=== PATIENT | male | born 1970 | race Caucasian/White ===

== ENCOUNTER 2017-06-04 02:17 | Observation (INO) ==
[2017-06-04] MEDS ORDERED: ASPIRIN 325 MG TABLET PO STA (02:44)
[2017-06-04] MEDS ORDERED: ALUM/MAG/SIMETH/LIDO VISC 1:1 30 ML BOTTLE PO STA (02:44)
[2017-06-04] MEDS ORDERED: ONDANSETRON 4 MG/2 ML VIAL IV STA (02:44)
[2017-06-04] MEDS ORDERED: MORPHINE 2 MG/1 ML SYRINGE IV STA (02:44)
[2017-06-04] MEDS ORDERED: NITROGLYCERIN 2% OINT 1 INCH/GM PACK TOP STA (02:44)
[2017-06-04 02:54] LABS: Basophils # 0.1 10*3/uL (0.0-0.2); Basophils % 0.6 % (0.0-0.8); Eosinophils # 0.3 10*3/uL (0.0-0.87); Eosinophils % 1.6 % (0.00-10.9); Hemoglobin 19.2 GM/DL (14.0-18.0); Immature Granulocytes % 0.4 %; Immature Granulocytes Absolute 0.07 #; Lymphocytes # 2.8 10*3/uL (1.4-4.0); Lymphocytes % 17.3 % (21.2-54.2); Mean Corpuscular HGB Conc 36.8 GM/DL (32-36); Mean Corpuscular Hemoglobin 31 PG (27-34); Mean Corpuscular Volume 84.9 FL (87-102); Mean Platelet Volume 10.4 FL (9.6-12.0); Monocytes # 1.4 10*3/uL (0.11-0.8); Monocytes % 8.6 % (1.7-12.7); Neutrophils # 11.7 10*3/uL (1.4-7.4); Neutrophils % 71.5 % (38.7-73.9); Platelet Count 338 T/CUMM (130-400); Red Blood Count 6.15 MC/CUMM (3.8-5.5); Red Cell Distribution Width 12.9 % (9.3-17.3); White Blood Count 16.4 T/CUMM (4-12)
[2017-06-04 02:59] LABS: Apearance,Urine CLEAR (Clear); Bilirubin,Urine Negative (Negative); Blood, Urine Negative (Negative); Glucose,Urine (UA) >=500 mg/dL (Negative); Ketones,Urine Negative (Negative); Nitrite,Urine Negative (Negative); PT Patient Result 10.7 SECS; Protein,Urine Negative; Squamous Epithelial Cell,Urine Occasional /HPF (0-10); Urine Color Yellow (Yellow); Urine Urobilinogen < 2.0 EU/DL (0.2-1.0); WBC,Urine 1 /HPF (0-6)
--- NOTE | 2017-06-04 03:00 | Emergency Department Note ---
Vasyl Grissom Emily, am scribing for, and in the presence of, Yovani Villatoro MD 02: 55. Irving Grissom Charles R, MD, personally performed the services described in this documentation, ascribed by Martha Fallon in my presence, and it is both accurate and complete . Arrival - Arrival Chief Complaint: Chest Pain Stated Complaint: chest pains ED Nursing Triage Note: C/O Midsternal chest pain-pressure. Onset upon waking up yesterday morning. pt states that he thought he slept wrong, but as the day has progressed his chest pain has worsened. Denies SOB/nausea with the pain. + pain with inspiration Denies injury. Pt reports nonproductive cough for 1-2 weeks ago Mode of Arrival: Ambulatory Limitations: No Limitations Source: Patient Time Seen by Provider: 06/04/17 02:33 - History of Present Illness HPI Narrative: Pt is a 46 y/o male who came to ED with c/o constant, mid sternal chest pain that onset when waking up yesterday morning. Spouse notes pt thought it was sleeping on the couch the night before, however, chest pain has worsened. Pt reports having pain worsen with deep inspiration, sleeping on side or on back, cough, but denies recent injury, SOB, nausea, or diaphoresis. Pt reports non productive cough for 1-2 weeks ago. Pt describes chest pain as sharp. He smokes a pack and a half a day, per spouse. PMHx of NIDDM, HTN, cardiomyopathy of 5% ejection, hearth cath, and cardiogram done about 6 months ago. Onset (ago): day(s) Consistency: constant Severity: mild, moderate Severity scale (1-10): 4 Quality: sharp Allergies/Adverse Reactions: Allergies Allergy/AdvReac Type Severity Reaction Status Date / Time Cefaclor Allergy HIVES Verified 01/14/15 12:22 Gatifloxacin Allergy HIVES Verified 01/14/15 12:22 Home Medications: Home Medications Medication Instructions Recorded Confirmed Type Aspirin [Ecotrin] 81 mg PO DAILY 01/14/15 06/04/17 History Carvedilol [Coreg] 25 mg PO BID 01/14/15 06/04/17 History Digoxin Tab [Lanoxin Tab] 0.25 mg PO DAILY 01/14/15 06/04/17 History Glimepiride [Amaryl] 2 mg PO DAILY W/BREAKFAST 01/14/15 06/04/17 History Magnesium Chloride [Slow Mag] 128 mg PO BID 01/14/15 06/04/17 History Pantoprazole Tab [Protonix Tab] 40 mg PO DAILY 01/14/15 06/04/17 History Rosuvastatin Calcium [Crestor] 40 mg PO DAILY 01/14/15 06/04/17 History sitaGLIPtin [Januvia] 100 mg PO DAILY 01/14/15 06/04/17 History Fenofibric Acid (Choline) 135 mg PO BEDTIME 07/03/15 06/04/17 History [Fenofibric Acid] Lisinopril 2.5 mg PO DAILY 07/03/15 06/04/17 History Potassium Chloride 20 meq PO BID 07/03/15 06/04/17 History Sertraline [Zoloft] 50 mg PO BEDTIME 07/03/15 06/04/17 History Review of System - Review of System 12 point system: reviewed and no additional remarkable complaints except as stated - Review of System Constitutional: Absent: chills, diaphoresis, fever Respiratory: Present: cough. Absent: respiratory distress (pain with deep breath) Cardiovascular: Present: chest pain (mid sternal pain; pain is worse when laying on side or on back). Absent: orthopnea, edema, syncope Gastrointestinal: Absent: nausea, vomiting Musculoskeletal: Absent: arm pain, neck pain Skin: Absent: rash Neurological: Absent: headache, numbness, paresthesias Medical,Surgical,& Family Hx - Medical History Cardio: History of: CHF (cardiomyopathy), Hypertension, Pacemaker Neurology: No history of: Seizures Endocrine: History of: Diabetes Mellitus (NIDDM) Gastrointestinal: History of: GERD, GI Problems Hematology: No history of: Blood Transfusion Reaction Other: History of: MRSA (buttocks 4 to 5 years ago) No history of: Anesthesia Reactions - Surgical History Cardiac Surgeries: Sugical HX of: Cardiac Catheterization, Internal Defibrillator Thoracic Surgeries: Patient denies;: Organ Transplant, Lobectomy Abdominal Surgeries: Surgical HX of: Hernia Repair (years ago) Reproductive Surgeries: Patient denies;: Genitourinary Surgery - Family History Family History: Reports;: Family Diabetes (father), Family Heart Disease (father ), Family Hypertension Denies;: Family Anesthesia Reaction, Family Cancer, Family Psychiatric Problems, Family Stroke - Social History Smoking Status: Current every day smoker Frequency of Alcohol Use: None Type of Drug Use: None Exam Vital Signs: Vital Signs Temperature 98.5 F 06/04/17 02:28 Pulse Rate 96 H 06/04/17 04:07 Respiratory Rate 18 06/04/17 04:07 Blood Pressure 131/90 06/04/17 04:07 O2 Sat by Pulse Oximetry 97 06/04/17 04:07 - General General appearance: alert, in no apparent distress, other (appears older than stated age) - Head Head exam: Present: atraumatic, normocephalic - Eye Eye exam: Present: PERRL, EOMI - ENT ENT exam: Present: mucous membranes moist. Absent: mucous membranes dry - Neck Neck exam: Present: full ROM - Chest Chest inspection: Present: symmetric chest wall rise (barrel chest) - Respiratory Respiratory exam: Present: rales (at base), rhonchi (bilateral) - Cardiovascular Cardiovascular exam: Present: tachycardia, normal heart sounds - Abdominal Exam Abdominal exam: Present: soft, distention (bloated). Absent: tenderness - Extremities Exam Extremities exam: Present: full ROM, pedal edema (+1 bilateral lower extremities ) - Neurological Exam Neurological exam: Present: alert, oriented X3, CN II-XII intact. Absent: motor sensory deficit - Psychiatric Psychiatric exam: Present: normal affect, normal mood - Skin Skin exam: Present: warm, dry Course - Consultations Consultation #1: Hospitalist will admit patient Time: 04:20 Results - Labs CBC & BMP: 06/04/17 02:32 06/04/17 02:32 Lab Results: I have reviewed the patients labs Labs: Laboratory Tests 06/04/17 06/04/17 06/04/17 02:32 02:32 02:32 WBC RBC Hgb Hct MCV MCHC Plt Count Lymph % (Auto) Neut # (Auto) [place] # (Auto) Sodium 132 L Potassium 3.7 Chloride 97 L Carbon Dioxide 28 BUN 9 Creatinine 0.90 GFR Calculation 117 Glucose 291 H AST 22 ALT 36 Globulin 4.3 H Albumin/Globulin Ratio 0.9 L Amylase 27 Lipase 143.0 Urine Color Yellow Urine Appearance Clear Urine pH 5.0 Ur Specific [place] 1.010 Urine Protein Negative Urine Glucose (UA) >=500 Urine Blood Negative Urine Nitrate Negative Urine Urobilinogen < 2.0 H Urine WBC 1 Ur Squamous Epith Cells Occasional U Amphetamine/Methamph Positive H 06/04/17 02:32 WBC 16.4 H RBC 6.15 H Hgb 19.2 H Hct 51.1 MCV 84.9 L MCHC 36.8 H Plt Count 338 Lymph % (Auto) 17.3 L Neut # (Auto) 11.7 H [place] # (Auto) 1.4 H Sodium Potassium Chloride Carbon Dioxide BUN Creatinine GFR Calculation Glucose AST ALT Globulin Albumin/Globulin Ratio Amylase Lipase Urine Color Urine Appearance Urine pH Ur Specific [place] Urine Protein Urine Glucose (UA) Urine Blood Urine Nitrate Urine Urobilinogen Urine WBC Ur Squamous Epith Cells U Amphetamine/Methamph Laboratory Tests 06/04/17 06/04/17 02:32 02:32 Urine Color Yellow Urine Appearance Clear Urine pH 5.0 Ur Specific [place] 1.010 Urine Glucose (UA) >=500 Urine Blood Negative Urine Nitrate Negative Urine Urobilinogen < 2.0 H Urine WBC 1 Ur Squamous Epith Cells Occasional U Amphetamine/Methamph Positive H Laboratory Tests 06/04/17 02:32 Digoxin 0.40 L Laboratory Tests 06/04/17 06/04/17 02:32 02:32 Troponin I < 0.015 B-Natriuretic Peptide 10 Disposition Clinical Impression: Chest pain, Cardiomyopathy, COPD (chronic obstructive pulmonary disease), Type 2 diabetes mellitus, Diabetes, Hypertension, Tobacco abuse Case discussed with: patient, patient's family Disposition: Still a Patient Condition: Stable Time of Disposition: 04:20
[2017-06-04 03:01] LABS: Hematocrit 51.1 VOL% (42.0-52.0)
[2017-06-04 03:04] LABS: Barbiturates Screen,Urine Negative (Negative); Benzodiazepines Screen,Urine Negative (Negative); Cannabinoid Screen,Urine Negative (Negative); Opiate Screen,Urine Negative (Negative); Phencyclidine Screen,Urine Negative (Negative)
[2017-06-04 03:11] LABS: Albumin 3.9 G/DL (3.4-5.0); Bilirubin,Total 0.7 MG/DL (0.2-1.0); Calcium 9.4 MG/DL (8.5-10.1); Magnesium 1.9 MG/DL (1.8-2.4); Osmolality,Calculated 273.5 MOS/KG (273-304); Potassium 3.7 MMOL/L (3.5-5.1); Total Protein 8.2 G/DL (6.4-8.3)
[2017-06-04] MEDS ORDERED: NITROGLYCERIN 2% OINT 1 INCH/GM PACK TOP ONE (03:13)
[2017-06-04] MEDS ORDERED: ONDANSETRON 4 MG/2 ML VIAL ONE (03:13)
[2017-06-04] MEDS ORDERED: ASPIRIN 325 MG TABLET ONE (03:14)
[2017-06-04] MEDS ORDERED: ALUM/MAG/SIMETH/LIDO VISC 1:1 30 ML BOTTLE PO ONE (03:14)
[2017-06-04] MEDS ORDERED: MORPHINE 2 MG/1 ML SYRINGE ONE (03:14)
[2017-06-04] MEDS ORDERED: KETOROLAC 30 MG/1 ML VIAL IV STA (05:01)
--- NOTE | 2017-06-04 05:08 | Hospitalist History & Physical ---
Assessment and Plan - Time spent with patient Time spent with patient: Greater than 30 minutes Time spent discussing smoking cessation with patient: 3 to 10 minutes (1) Chest pain Status: Acute Assessment and plan: Patient has atypical chest pain which is low risk with a MANUEL score of 2. He has known history of nonischemic cardiomyopathy. He be placed on observation for serial cardiac biomarkers and pain control. He is mildly tachycardic and will order a d-dimer and proceed as indicated. Will consult his vice principal to assist. He should be stable to be discharged within 24 hours if evaluation is negative. Current Visit: Yes (2) Cardiomyopathy Status: Chronic Assessment and plan: Patient has history of nonischemic cardiomyopathy with ejection fraction noted at 5%. He appears to be well compensated at this time. Continue his current medical regimen. Current Visit: Yes (3) Implantable cardioverter-defibrillator (ICD) generator end of life Status: Resolved Assessment and plan: Patient has history of nonischemic cardiomyopathy and is status post AICD placement. Current Visit: No (4) Hypertension Status: Chronic Assessment and plan: Patient is currently hemodynamically stable and blood pressure is well controlled. Continue his current regimen. Current Visit: Yes Qualifiers: Hypertension type: essential hypertension Qualified Code(s): I10 - Essential (primary) hypertension (5) Tobacco abuse Status: Chronic Assessment and plan: He continues to smoke and have his discuss smoking cessation for approximately 3 -1/2 minutes. Current Visit: Yes (6) Type 2 diabetes mellitus Status: Chronic Assessment and plan: Patient has history of diabetes mellitus type 2 controlled on oral hypoglycemic agents. We will continue his home regimen with Accu-Cheks and sliding scale. Hemoglobin A1c has been ordered. Current Visit: Yes History of Present Illness Chief complaint: Chest pain History of present illness: Mr. Cespedes is a 46 year old white male with a history of nonischemic cardiomyopathy, hypertension, diabetes mellitus type 2 who presents with 18 hour history of constant dull anterior chest discomfort which is worsened with positional change and deep breathing. He denies any associated shortness of breath, diaphoresis, nausea, vomiting. He has had a cough which is been nonproductive but denies any fever or chills. He denies any abdominal pain, melena, hematochezia, hematemesis, dysuria, hematuria, urinary frequency urgency or incontinence. He is followed by nurse practitioner in [place]. His vice principal is Dr. Jaleel Sequeira. Home Medications Medication Instructions Recorded Confirmed Type Aspirin [Ecotrin] 81 mg PO DAILY 01/14/15 06/04/17 History Carvedilol [Coreg] 25 mg PO BID 01/14/15 06/04/17 History Digoxin Tab [Lanoxin Tab] 0.25 mg PO DAILY 01/14/15 06/04/17 History Glimepiride [Amaryl] 2 mg PO DAILY W/BREAKFAST 01/14/15 06/04/17 History Magnesium Chloride [Slow Mag] 128 mg PO BID 01/14/15 06/04/17 History Pantoprazole Tab [Protonix Tab] 40 mg PO DAILY 01/14/15 06/04/17 History Rosuvastatin Calcium [Crestor] 40 mg PO DAILY 01/14/15 06/04/17 History sitaGLIPtin [Januvia] 100 mg PO DAILY 01/14/15 06/04/17 History Fenofibric Acid (Choline) 135 mg PO BEDTIME 07/03/15 06/04/17 History [Fenofibric Acid] Lisinopril 2.5 mg PO DAILY 07/03/15 06/04/17 History Potassium Chloride 20 meq PO BID 07/03/15 06/04/17 History Sertraline [Zoloft] 50 mg PO BEDTIME 07/03/15 06/04/17 History Allergies Allergy/AdvReac Type Severity Reaction Status Date / Time Cefaclor Allergy HIVES Verified 01/14/15 12:22 Gatifloxacin Allergy HIVES Verified 01/14/15 12:22 Medical,Surgical,& Family Hx - Medical History Cardio: History of: CHF (cardiomyopathy), Hypertension, Pacemaker Neurology: No history of: Seizures Endocrine: History of: Diabetes Mellitus (NIDDM) Gastrointestinal: History of: GERD, GI Problems Hematology: No history of: Blood Transfusion Reaction Other: History of: MRSA (buttocks 4 to 5 years ago) No history of: Anesthesia Reactions - Surgical History Cardiac Surgeries: Sugical HX of: Cardiac Catheterization, Internal Defibrillator Thoracic Surgeries: Patient denies;: Organ Transplant, Lobectomy Abdominal Surgeries: Surgical HX of: Hernia Repair (years ago) Reproductive Surgeries: Patient denies;: Genitourinary Surgery - Family History Family History: Reports;: Family Diabetes (father), Family Heart Disease (father ), Family Hypertension Denies;: Family Anesthesia Reaction, Family Cancer, Family Psychiatric Problems, Family Stroke - Social History Smoking Status: Current every day smoker Frequency of Alcohol Use: None Type of Drug Use: None Marital Status: 12 point system: reviewed and no additional remarkable complaints except as stated Exam - Constitutional Vitals: Period Temp Pulse Resp BP Sys/Zaragoza Pulse Ox Last 24 Hr 98.5 F-98.5 F 87-110 18-21 123-131/71-90 95-100 General appearance: no acute distress - Head Head exam: Present: normocephalic, atraumatic - Eye Eye exam: Present: EOMI Pupils: Present: HARRY - ENT ENT exam: Present: normal exam - Neck Neck exam: Present: normal inspection - Respiratory Respiratory exam: Present: clear to auscultation bilaterally. Absent: rales, rhonchi, wheezes - Cardiovascular Cardiovascular exam: Present: regular rate and rhythm. Absent: gallop, rubs, systolic murmur, tachycardia - GI/Abdominal GI/Abdominal exam: Present: normal bowel sounds, soft. Absent: mass, tenderness , rebound - Extremities Exam Extremities exam: Absent: calf tenderness, edema - Back Exam Back exam: Present: normal inspection - Neurological Exam Neurological exam: Present: alert, oriented X3, CN II-XII intact, reflexes normal. Absent: motor sensory deficit - Psychiatric Psychiatric exam: Present: normal affect, normal mood. Absent: agitated, anxious - Skin Skin exam: Present: warm, dry. Absent: erythema, petechiae, rash Results - Labs CBC & BMP: 06/04/17 02:32 06/04/17 02:32 Lab Results: I have reviewed the past 24 hour labs - EKG EKG shows: sinus rhythm - Diagnostic Findings Procedure: Chest x-ray: image reviewed by me
[2017-06-04] MEDS ORDERED: KETOROLAC 30 MG/1 ML VIAL ONE (05:29)
--- NOTE | 2017-06-04 06:24 | EKG Report ---
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
[2017-06-04] MEDS ORDERED: GLUCAGON 1 MG VIAL IM PRN (06:31)
[2017-06-04] MEDS ORDERED: guaiFENesin 200 MG/10 ML UDCUP PO PRN (06:31)
[2017-06-04] MEDS ORDERED: MORPHINE 2 MG/1 ML SYRINGE IV PRN (06:31)
[2017-06-04] MEDS ORDERED: SODIUM CHLORIDE 0.45% 1,000 ML IV SCH (06:31)
[2017-06-04] MEDS ORDERED: ONDANSETRON 4 MG/2 ML VIAL IV PRN (06:31)
[2017-06-04] MEDS ORDERED: KETOROLAC 15 MG/1 ML VIAL IV PRN (06:31)
[2017-06-04] MEDS ORDERED: DEXTROSE 50% 25 GM/50 ML SYRINGE IV PRN (06:31)
[2017-06-04] MEDS ORDERED: AZITHROMYCIN 250 MG TABLET PO SCH (07:30)
--- NOTE | 2017-06-04 07:41 | XRay Report ---
Exam: XR chest 1V portable Date: 06/04/2017 2:44 AM Indication: Chest pain Comparison: 11/22/2016 Technical: AP Findings: Left-sided cardiac implantable defibrillator pacing device with atrial ventricular leads present with 2 ventricular leads present. The lungs are otherwise demonstrated without infiltrates or effusions. The mediastinum and bony structures are intact. No pneumothorax. Impression: 1. Stable appearance the cardiac implantable defibrillator pacing device from a left-sided approach without acute cardiopulmonary pathology PROCEDURE INTERPRETED AT [facility] DEPARTMENT OF RADIOLOGY Final Report Signed by: Dr. Ambrocio Vidales
--- NOTE | 2017-06-04 07:42 | XRay Report ---
Exam: XR abdomen 2V Date: 06/04/2017 2:44 AM Comparison: January 14, 2015 Indication: Epigastric pain Findings: Lung bases are unremarkable. There is a cardiac pacing device in place with atrial ventricular leads noted The liver and spleen are unremarkable Renal contours are unremarkable The bony structures are intact No obvious pneumoperitoneum Nonspecific GI pattern. Impression: 1. Nonspecific GI pattern. PROCEDURE INTERPRETED AT [facility] DEPARTMENT OF RADIOLOGY Final Report Signed by: Dr. Ambrocio Vidales
--- NOTE | 2017-06-04 07:44 | EKG Report ---
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
[2017-06-04] MEDS ORDERED: GLIMEPIRIDE 2 MG TABLET PO SCH (08:00)
[2017-06-04 08:03] LABS: Risk Ratio 3.85; VLDL CHOLESTEROL 54.4 MG/DL
[2017-06-04] MEDS: INSULIN LISPRO 100 UNIT/ML SUBCUT SCH ×3 (08:50→17:10)
[2017-06-04] MEDS: NITROGLYCERIN 2% OINT 1 INCH/GM PACK TOP SCH ×2 (08:50→11:25)
[2017-06-04] MEDS ORDERED: ASPIRIN EC 81 MG TABLET PO SCH (09:00)
[2017-06-04] MEDS ORDERED: CARVEDILOL 25 MG TABLET PO SCH (09:00)
[2017-06-04] MEDS ORDERED: sitaGLIPtin 100 MG TABLET PO SCH (09:00)
[2017-06-04] MEDS ORDERED: DIGOXIN 0.25 MG TABLET PO SCH (09:00)
[2017-06-04] MEDS ORDERED: PANTOPRAZOLE 40 MG TABLET PO SCH (09:00)
[2017-06-04] MEDS ORDERED: LISINOPRIL 2.5 MG TABLET PO SCH (09:00)
[2017-06-04] MEDS ORDERED: ROSUVASTATIN 20 MG TABLET PO SCH (09:00)
[2017-06-04] MEDS ORDERED: ENOXAPARIN 40 MG/0.4 ML SYRINGE SUBCUT SCH (09:00)
[2017-06-04] MEDS ORDERED: POTASSIUM CHLORIDE 20 MEQ TABLET PO SCH (09:00)
[2017-06-04] MEDS ORDERED: MAGNESIUM CHLORIDE 64 MG TABLET PO SCH (09:00)
--- NOTE | 2017-06-04 10:59 | Discharge Summary ---
<Ana Panda - Last Filed: 06/04/17 10:51> Hospital Course - Hospital Course Hospital Course: This is a chronically ill 46-year-old male that presented to the ED at [facility] on the morning of Sunday, June 04, 2017 for the evaluation of chest pain. The patient reported a medical history significant for nonischemic cardiomyopathy, hypertension, diabetes mellitus type 2, polysubstance abuse, chronic obstructive pulmonary disease, chronic systolic congestive heart failure, dyslipidemia, and nicotine addiction. Patient reported a surgical history significant for implantable cardioverter- defibrillator Generator placement, hernia repair, and cardiac catheterization. The patient reported the onset of symptoms 18 hours prior to presentation. He reported a gradual onset of dull anterior chest discomfort that worsened with positional changes and deep breathing; however denies shortness of breath, diaphoresis, nausea, vomiting, and epigastric discomfort. He reported that he had started to experiencing a cough in recent days however, the cough was noted to be nonproductive. He denied chills, fever, abdominal pain, melena, hematochezia, hematemesis, dysuria, hematuria, urinary frequency, or urinary incontinence. His symptoms became severe prompting him to present to the ED for further evaluation. The patient was assessed at the time of ED presentation. The patient was noted to be mildly hypertensive with a blood pressure recorded at 131/90. Labs were obtained which were significant for white blood cell count 16.4, hemoglobin 16.4 , hematocrit 51.5, platelet count 238, sodium 132, chloride 97, glucose 291, hemoglobin A1c 7.2, troponin less than 0.015, and triglycerides at 272. Urinalysis was significant for urine urobilinogen greater than 2.0, urine white blood cell count 1, and urine squamous epithelial cells occasional. Urine toxicology significant for digoxin level at 0.40 and positive findings for amphetamine and methamphetamine. CT abdomen and pelvis was unremarkable for the presence of any specific gastrointestinal pattern. Chest x-ray was significant for stable appearance of the cardiac implantable defibrillator pacer device from a left-sided approach without cardiopulmonary pathology. The patient was subsequently admitted to the hospitalist service for continuation of care. Due to the severity of the patient's cardiovascular disease, a cardiology consultation was requested. Specialty Discharge - Follow Up or Referrals Follow up with: Sergey Sequeira MD [Physician] - (Please schedule Cardiolite stress test at [facility] in the next 1-2 weeks (reason: Chest pain). Also, please schedule echocardiogram at [facility] in the next 2-3 weeks (reason: Cardiomyopathy). Please give patient a follow-up appoint with Dr. Sequeira in 4-6 weeks. At that visit the following will be obtained: BMP, magnesium, CBC, EKG.) Discharge Plan - Discharge Medications New guaiFENesin LIQUID [Robitussin] 10 ml PO Q4H PRN #1 PRN Reason: Cough Azithromycin Tab [Zithromax Tab] 500 mg PO DAILY #7 tablet Continue Pantoprazole Tab [Protonix Tab] 40 mg PO DAILY Magnesium Chloride [Slow Mag] 128 mg PO BID sitaGLIPtin [Januvia] 100 mg PO DAILY Rosuvastatin Calcium [Crestor] 40 mg PO DAILY Digoxin Tab [Lanoxin Tab] 0.25 mg PO DAILY Glimepiride [Amaryl] 2 mg PO DAILY W/BREAKFAST Carvedilol [Coreg] 25 mg PO BID Aspirin [Ecotrin] 81 mg PO DAILY Fenofibric Acid (Choline) [Fenofibric Acid] 135 mg PO BEDTIME Potassium Chloride 20 meq PO BID Sertraline [Zoloft] 50 mg PO BEDTIME Lisinopril 2.5 mg PO DAILY - Follow Up or Referral Follow Up: Sergey Sequeira MD [Physician] - (Please schedule Cardiolite stress test at [facility] in the next 1-2 weeks (reason: Chest pain). Also, please schedule echocardiogram at [facility] in the next 2-3 weeks (reason: Cardiomyopathy). Please give patient a follow-up appoint with Dr. Sequeira in 4-6 weeks. At that visit the following will be obtained: BMP, magnesium, CBC, EKG.) - Forms/Instructions Exam - Constitutional Vitals: Period Temp Pulse Resp BP Sys/[place] Pulse Ox Last 24 Hr 97.0 F-98.5 F 87-110 16-21 94-135/51-90 92-100 Discharge Results Labs on day of discharge: Labs from last 24 hours 06/04/17 06/04/17 06/04/17 15:37 11:56 11:22 WBC RBC Hgb Hct MCV MCH MCHC RDW Plt Count MPV Neut % (Auto) Lymph % (Auto) [place] % (Auto) Eos % (Auto) Baso % (Auto) Neut # (Auto) Lymph # (Auto) [place] # (Auto) Eos # (Auto) Baso # (Auto) Immature Gran % Nucleated RBC % Immature Gran # Nucleated RBCs # Immature Plt Fraction INR PT Patient/Control Mix D-Dimer, Quantitative Sodium Potassium Chloride Carbon Dioxide Anion Gap BUN Creatinine GFR Calculation BUN/Creatinine Ratio Glucose POC Glucose 254 H 233 H Hemoglobin A1c Calculated Osmolality Calcium Magnesium Total Bilirubin AST ALT Alkaline Phosphatase Total Creatine Kinase 43 CK-MB (CK-2) 1.0 Troponin I < 0.015 B-Natriuretic Peptide Total Protein Albumin Globulin Albumin/Globulin Ratio Triglycerides Cholesterol LDL Cholesterol VLDL Cholesterol HDL Cholesterol Heart Disease Risk Ratio Amylase Lipase Urine Color Urine Appearance Urine pH Ur Specific [place] Urine Protein Urine Glucose (UA) Urine Ketones Urine Blood Urine Nitrate Urine Bilirubin Urine Urobilinogen Urine Leukocytes Urine WBC Ur Squamous Epith Cells Ur Culture Indicated? Digoxin Urine Opiates Screen Ur Barbiturates Screen Ur Phencyclidine Scrn U Amphetamine/Methamph U Benzodiazepines Scrn U Cocaine Metab Screen U Cannabinoids Screen 06/04/17 06/04/17 06/04/17 07:15 07:15 07:15 WBC RBC Hgb Hct MCV MCH MCHC RDW Plt Count MPV Neut % (Auto) Lymph % (Auto) [place] % (Auto) Eos % (Auto) Baso % (Auto) Neut # (Auto) Lymph # (Auto) [place] # (Auto) Eos # (Auto) Baso # (Auto) Immature Gran % Nucleated RBC % Immature Gran # Nucleated RBCs # Immature Plt Fraction INR PT Patient/Control Mix D-Dimer, Quantitative Sodium Potassium Chloride Carbon Dioxide Anion Gap BUN Creatinine GFR Calculation BUN/Creatinine Ratio Glucose POC Glucose Hemoglobin A1c 7.2 H Calculated Osmolality Calcium Magnesium Total Bilirubin AST ALT Alkaline Phosphatase Total Creatine Kinase CK-MB (CK-2) Troponin I < 0.015 B-Natriuretic Peptide Total Protein Albumin Globulin Albumin/Globulin Ratio Triglycerides 272 H Cholesterol 154 LDL Cholesterol 83.0 VLDL Cholesterol 54.4 HDL Cholesterol 40 Heart Disease Risk Ratio 3.85 Amylase Lipase Urine Color Urine Appearance Urine pH Ur Specific [place] Urine Protein Urine Glucose (UA) Urine Ketones Urine Blood Urine Nitrate Urine Bilirubin Urine Urobilinogen Urine Leukocytes Urine WBC Ur Squamous Epith Cells Ur Culture Indicated? Digoxin Urine Opiates Screen Ur Barbiturates Screen Ur Phencyclidine Scrn U Amphetamine/Methamph U Benzodiazepines Scrn U Cocaine Metab Screen U Cannabinoids Screen 06/04/17 06/04/17 06/04/17 06:43 02:32 02:32 WBC RBC Hgb Hct MCV MCH MCHC RDW Plt Count MPV Neut % (Auto) Lymph % (Auto) [place] % (Auto) Eos % (Auto) Baso % (Auto) Neut # (Auto) Lymph # (Auto) [place] # (Auto) Eos # (Auto) Baso # (Auto) Immature Gran % Nucleated RBC % Immature Gran # Nucleated RBCs # Immature Plt Fraction INR PT Patient/Control Mix D-Dimer, Quantitative 0.6 Sodium Potassium Chloride Carbon Dioxide Anion Gap BUN Creatinine GFR Calculation BUN/Creatinine Ratio Glucose POC Glucose 211 H Hemoglobin A1c Calculated Osmolality Calcium Magnesium Total Bilirubin AST ALT Alkaline Phosphatase Total Creatine Kinase CK-MB (CK-2) Troponin I B-Natriuretic Peptide Total Protein Albumin Globulin Albumin/Globulin Ratio Triglycerides Cholesterol LDL Cholesterol VLDL Cholesterol HDL Cholesterol Heart Disease Risk Ratio Amylase Lipase Urine Color Urine Appearance Urine pH Ur Specific [place] Urine Protein Urine Glucose (UA) Urine Ketones Urine Blood Urine Nitrate Urine Bilirubin Urine Urobilinogen Urine Leukocytes Urine WBC Ur Squamous Epith Cells Ur Culture Indicated? Digoxin 0.40 L Urine Opiates Screen Ur Barbiturates Screen Ur Phencyclidine Scrn U Amphetamine/Methamph U Benzodiazepines Scrn U Cocaine Metab Screen U Cannabinoids Screen 06/04/17 06/04/17 06/04/17 02:32 02:32 02:32 WBC 16.4 H RBC 6.15 H Hgb 19.2 H Hct 51.1 MCV 84.9 L MCH 31 MCHC 36.8 H RDW 12.9 Plt Count 338 MPV 10.4 Neut % (Auto) 71.5 Lymph % (Auto) 17.3 L [place] % (Auto) 8.6 Eos % (Auto) 1.6 Baso % (Auto) 0.6 Neut # (Auto) 11.7 H Lymph # (Auto) 2.8 [place] # (Auto) 1.4 H Eos # (Auto) 0.3 Baso # (Auto) 0.1 Immature Gran % 0.4 Nucleated RBC % 0.0 Immature Gran # 0.07 Nucleated RBCs # 0.00 Immature Plt Fraction 0.0 INR PT Patient/Control Mix D-Dimer, Quantitative Sodium Potassium Chloride Carbon Dioxide Anion Gap BUN Creatinine GFR Calculation BUN/Creatinine Ratio Glucose POC Glucose Hemoglobin A1c Calculated Osmolality Calcium Magnesium Total Bilirubin AST ALT Alkaline Phosphatase Total Creatine Kinase CK-MB (CK-2) Troponin I < 0.015 B-Natriuretic Peptide Total Protein Albumin Globulin Albumin/Globulin Ratio Triglycerides Cholesterol LDL Cholesterol VLDL Cholesterol HDL Cholesterol Heart Disease Risk Ratio Amylase Lipase Urine Color Urine Appearance Urine pH Ur Specific [place] Urine Protein Urine Glucose (UA) Urine Ketones Urine Blood Urine Nitrate Urine Bilirubin Urine Urobilinogen Urine Leukocytes Urine WBC Ur Squamous Epith Cells Ur Culture Indicated? Digoxin Urine Opiates Screen Negative Ur Barbiturates Screen Negative Ur Phencyclidine Scrn Negative U Amphetamine/Methamph Positive H U Benzodiazepines Scrn Negative U Cocaine Metab Screen Negative U Cannabinoids Screen Negative 06/04/17 06/04/17 06/04/17 02:32 02:32 02:32 WBC RBC Hgb Hct MCV MCH MCHC RDW Plt Count MPV Neut % (Auto) Lymph % (Auto) [place] % (Auto) Eos % (Auto) Baso % (Auto) Neut # (Auto) Lymph # (Auto) [place] # (Auto) Eos # (Auto) Baso # (Auto) Immature Gran % Nucleated RBC % Immature Gran # Nucleated RBCs # Immature Plt Fraction INR PT Patient/Control Mix D-Dimer, Quantitative Sodium 132 L Potassium 3.7 Chloride 97 L Carbon Dioxide 28 Anion Gap 10.7 BUN 9 Creatinine 0.90 GFR Calculation 117 BUN/Creatinine Ratio 10.00 Glucose 291 H POC Glucose Hemoglobin A1c Calculated Osmolality 273.5 Calcium 9.4 Magnesium 1.9 Total Bilirubin 0.70 AST 22 ALT 36 Alkaline Phosphatase 117 Total Creatine Kinase CK-MB (CK-2) Troponin I B-Natriuretic Peptide 10 Total Protein 8.2 Albumin 3.9 Globulin 4.3 H Albumin/Globulin Ratio 0.9 L Triglycerides Cholesterol LDL Cholesterol VLDL Cholesterol HDL Cholesterol Heart Disease Risk Ratio Amylase 27 Lipase 143.0 Urine Color Yellow Urine Appearance Clear Urine pH 5.0 Ur Specific [place] 1.010 Urine Protein Negative Urine Glucose (UA) >=500 Urine Ketones Negative Urine Blood Negative Urine Nitrate Negative Urine Bilirubin Negative Urine Urobilinogen < 2.0 H Urine Leukocytes Negative Urine WBC 1 Ur Squamous Epith Cells Occasional Ur Culture Indicated? Not indicated Digoxin Urine Opiates Screen Ur Barbiturates Screen Ur Phencyclidine Scrn U Amphetamine/Methamph U Benzodiazepines Scrn U Cocaine Metab Screen U Cannabinoids Screen 06/04/17 02:32 WBC RBC Hgb Hct MCV MCH MCHC RDW Plt Count MPV Neut % (Auto) Lymph % (Auto) [place] % (Auto) Eos % (Auto) Baso % (Auto) Neut # (Auto) Lymph # (Auto) [place] # (Auto) Eos # (Auto) Baso # (Auto) Immature Gran % Nucleated RBC % Immature Gran # Nucleated RBCs # Immature Plt Fraction INR 1.0 PT Patient/Control Mix 10.7 D-Dimer, Quantitative Sodium Potassium Chloride Carbon Dioxide Anion Gap BUN Creatinine GFR Calculation BUN/Creatinine Ratio Glucose POC Glucose Hemoglobin A1c Calculated Osmolality Calcium Magnesium Total Bilirubin AST ALT Alkaline Phosphatase Total Creatine Kinase CK-MB (CK-2) Troponin I B-Natriuretic Peptide Total Protein Albumin Globulin Albumin/Globulin Ratio Triglycerides Cholesterol LDL Cholesterol VLDL Cholesterol HDL Cholesterol Heart Disease Risk Ratio Amylase Lipase Urine Color Urine Appearance Urine pH Ur Specific [place] Urine Protein Urine Glucose (UA) Urine Ketones Urine Blood Urine Nitrate Urine Bilirubin Urine Urobilinogen Urine Leukocytes Urine WBC Ur Squamous Epith Cells Ur Culture Indicated? Digoxin Urine Opiates Screen Ur Barbiturates Screen Ur Phencyclidine Scrn U Amphetamine/Methamph U Benzodiazepines Scrn U Cocaine Metab Screen U Cannabinoids Screen DS: Provider Date of admission: 06/04/17 05:00 Primary care physician: FREDA Jones Attending physician on admission: Ambrocio Gregory MD Consults: 06/04/17 06:31 Consult to Physician [CONS] Routine Comment: cp Consulting Provider: Cardiology - [facility] Discharging clinician: Ana Panda CNP <Kalee Martins - Last Filed: 06/04/17 16:44> Diagnosis - Discharge Diagnosis (1) Chest pain Status: Resolved Discharge Plan - Discharge Data Condition at Discharge: Activity: resume usual activities as tolerated Hygiene: no restrictions Weight Bearing at Discharge: full weight bearing Driving: no restrictions Exam - Constitutional General appearance: no acute distress - Head Head exam: Present: normal inspection - Eye Eye exam: Present: EOMI - ENT ENT exam: Present: normal exam - Neck Neck exam: Present: normal inspection - Respiratory Respiratory exam: Present: clear to auscultation bilaterally - Cardiovascular Cardiovascular exam: Present: regular rate and rhythm - Neurological Exam Neurological exam: Present: alert, oriented X3
--- NOTE | 2017-06-04 12:25 | Cardiology Progress Note ---
Tay Grissom Lesley, ASHLEY, am scribing for, and in the presence of, Clair Kothari NP 12:21. <Clair Kothari - Last Filed: 06/04/17 12:18> Assessment and Plan - Time spent with patient Time spent with patient: Greater than 30 minutes (Record review, assessment, documentation) Time spent discussing smoking cessation with patient: 3 to 10 minutes (1) Cardiomyopathy Status: Chronic Assessment and plan: SEE PLAN LISTED BELOW Current Visit: Yes (2) Hypertension Status: Chronic Assessment and plan: SEE PLAN LISTED BELOW Current Visit: Yes Qualifiers: Hypertension type: essential hypertension Qualified Code(s): I10 - Essential (primary) hypertension (3) Chest pain Status: Acute Assessment and plan: SEE PLAN LISTED BELOW Current Visit: Yes (4) Tobacco abuse Status: Chronic Assessment and plan: SEE PLAN LISTED BELOW Current Visit: Yes (5) Noncompliance Status: Acute Assessment and plan: SEE PLAN OF CARE LISTED BELOW Current Visit: Yes Cardiology - PN: Subj Interval history: 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 Cespedes is a 46-year-old WM, admitted to the ER with complaints of chest pain that he described as a sharp soreness to the center of his chest. He reports the pain awakened him from a nap and reported no alleviating factors. He did report that laying flat worsened the pain, and that the pain did not go away and so he came to the emergency room for evaluation. He denies dyspnea, orthopnea, nausea, vomiting, heart palpitations, or lower extremity edema. Cardiac risk factors include nonischemic cardiomyopathy, presence of AICD, COPD , diabetes type 2, hyperlipidemia, hyponatremia, hypertension, smoker (1-1.5 ppd for 32 years). Past surgical history includes biventricular ICD implantation and lead replacement, hernia repair. He admits to current tobacco use, denies alcohol use, denies drug use. Patient's is at bedside in states he has missed multiple appointments for sleep study, and reports that he snore at night. Suspect sleep apnea. Transthoracic echocardiogram done 12/2016 revealed global left ventricular systolic function moderately decreased, left ventricular ejection fraction 35%, mild concentric left ventricular hypertrophy present, mild mitral regurgitation , mild aortic regurgitation, mild tricuspid regurgitation, PAP 32 mmHg. The patient seen sitting up and eating breakfast. He did denies current chest pain or dyspnea. He reports that he initially thought his chest pain was related to coughing, as he is had a cold for about 2 weeks. He reports the chest pain would not go away, and only got worse and so he presented to the emergency room for evaluation. He reports that he was given a GI cocktail in the emergency room, and this seemed to relieve his pain. The pain has not returned. Vital signs have remained stable, EKG shows sinus rhythm with ST deviation and T-wave abnormality. Chest x-ray reveals stable cardiac implantable defibrillator pacing device without acute cardiopulmonary pathology. Abdominal x-ray shows reveals nonspecific GI pattern. Labs reviewed , WBCs 16.4, hemoglobin 19.2, hematocrit 51, INR 1.0, sodium 132, potassium 3.7 , creatinine 0.9, BUN 9, glucose 291, hemoglobin A1c 7.2, triglycerides 272, LDL 83. Urinalysis negative, digoxin level 0.4, which is low. Urine drug screen positive for amphetamines. Troponins have remained negative. D-dimer 0.6. Patient has been ambulating without difficulty. His chest pain is reproducible to palpation and not thought to be cardiac in nature. Patient would like to be discharged home at this time. From cardiology standpoint, he is stable for discharge. Patient has a history of noncompliance. He will be given a follow-up appointment with Dr. Sequeira for further management. Will schedule him for outpatient stress test and echocardiogram. IMPRESSION/PLAN: 1. CHEST PAIN -cardiac biomarkers are negative, EKG is stable. This is not acute [place]. Patient's chest pain is reproducible to palpation. He will be given an outpatient stress test at [facility] and we will arrange for this prior to discharge. 2. NONISCHEMIC CARDIOMYOPATHY - EF 35%, repeat echo outpatient. Will arrange for outpatient echocardiogram 3. HYPERTENSION - continue beta joanna, digoxin, ACEI 4. TOBACCO ABUSE - the merits of smoking cesssation have been encouraged and discussed with the patient. 5. AMPHETAMINE USE - patient denies use, UDS positive today. The merits of discontinuation of use of amphetamines was thoroughly discussed today for greater than 5 minutes. 6. NONCOMPLIANCE - reiterated the importance of continued follow-up and compliance with medications. 7. DIABETES - patient has been noncompliant with his diabetic medications. He is encouraged to follow-up with his primary care provider for continued management. Exam (Progress Note) - Constitutional Vitals: Period Temp Pulse Resp BP Sys/Zaragoza Pulse Ox Last 24 Hr 97.9 F-98.5 F 87-110 16-21 121-135/71-90 95-100 Exam: General: Appears well with no apparent distress. Pleasant and cooperative. Appears comfortable. HEENT: PERRL, normocephalic, atraumatic. Mucous membranes moist. No jaundice noted. Conjunctiva moist and clear, sclerae anicteric. Neck: No JVD/HJR, no thyromegaly or lymphadenopathy noted. No carotid bruit appreciated. Cardiac: Regular rate and rhythm. No murmur rub or gallop. No chest reveals ICD well-healed insertion site Lungs: Clear to auscultation without accessory muscle use to assist the respiratory pattern. No oxygen in use. Abdomen: Soft, bowel sounds normoactive. Nontender and nondistended. No abdominal bruit or thrill noted. No masses noted. Musculoskeletal: No fluid collection. Full range of motion is noted. Extremities: No clubbing, cyanosis noted. No edema noted. Upper extremity pulses 2+. Lower extremity pulses 2+. Capillary refill less than 3 seconds. Skin: Warm and dry. No unusual lesions or rashes. No skin breakdown appreciated. Neuro: Awake, alert and oriented 3. Moves all extremities well without hemiparesis or paralysis. No essential tremor is appreciated. Result/EKG - Labs CBC & BMP: 06/04/17 02:32 06/04/17 02:32 Lab Results: I have reviewed the past 24 hour labs Labs: Laboratory Results - last 24 hr 06/04/17 06/04/17 06/04/17 02:32 02:32 02:32 WBC RBC Hgb Hct MCV MCH MCHC RDW Plt Count MPV Neut % (Auto) Lymph % (Auto) [place] % (Auto) Eos % (Auto) Baso % (Auto) Neut # (Auto) Lymph # (Auto) [place] # (Auto) Eos # (Auto) Baso # (Auto) Immature Gran % Nucleated RBC % Immature Gran # Nucleated RBCs # Immature Plt Fraction INR 1.0 PT Patient/Control Mix 10.7 D-Dimer, Quantitative Sodium 132 L Potassium 3.7 Chloride 97 L Carbon Dioxide 28 Anion Gap 10.7 BUN 9 Creatinine 0.90 GFR Calculation 117 BUN/Creatinine Ratio 10.00 Glucose 291 H POC Glucose Hemoglobin A1c Calculated Osmolality 273.5 Calcium 9.4 Magnesium 1.9 Total Bilirubin 0.70 AST 22 ALT 36 Alkaline Phosphatase 117 Troponin I B-Natriuretic Peptide Total Protein 8.2 Albumin 3.9 Globulin 4.3 H Albumin/Globulin Ratio 0.9 L Triglycerides Cholesterol LDL Cholesterol VLDL Cholesterol HDL Cholesterol Heart Disease Risk Ratio Amylase 27 Lipase 143.0 Urine Color Yellow Urine Appearance Clear Urine pH 5.0 Ur Specific [place] 1.010 Urine Protein Negative Urine Glucose (UA) >=500 Urine Ketones Negative Urine Blood Negative Urine Nitrate Negative Urine Bilirubin Negative Urine Urobilinogen < 2.0 H Urine Leukocytes Negative Urine WBC 1 Ur Squamous Epith Cells Occasional Ur Culture Indicated? Not indicated Digoxin Urine Opiates Screen Ur Barbiturates Screen Ur Phencyclidine Scrn U Amphetamine/Methamph U Benzodiazepines Scrn U Cocaine Metab Screen U Cannabinoids Screen 06/04/17 06/04/17 06/04/17 02:32 02:32 02:32 WBC 16.4 H RBC 6.15 H Hgb 19.2 H Hct 51.1 MCV 84.9 L MCH 31 MCHC 36.8 H RDW 12.9 Plt Count 338 MPV 10.4 Neut % (Auto) 71.5 Lymph % (Auto) 17.3 L [place] % (Auto) 8.6 Eos % (Auto) 1.6 Baso % (Auto) 0.6 Neut # (Auto) 11.7 H Lymph # (Auto) 2.8 [place] # (Auto) 1.4 H Eos # (Auto) 0.3 Baso # (Auto) 0.1 Immature Gran % 0.4 Nucleated RBC % 0.0 Immature Gran # 0.07 Nucleated RBCs # 0.00 Immature Plt Fraction 0.0 INR PT Patient/Control Mix D-Dimer, Quantitative Sodium Potassium Chloride Carbon Dioxide Anion Gap BUN Creatinine GFR Calculation BUN/Creatinine Ratio Glucose POC Glucose Hemoglobin A1c Calculated Osmolality Calcium Magnesium Total Bilirubin AST ALT Alkaline Phosphatase Troponin I B-Natriuretic Peptide 10 Total Protein Albumin Globulin Albumin/Globulin Ratio Triglycerides Cholesterol LDL Cholesterol VLDL Cholesterol HDL Cholesterol Heart Disease Risk Ratio Amylase Lipase Urine Color Urine Appearance Urine pH Ur Specific [place] Urine Protein Urine Glucose (UA) Urine Ketones Urine Blood Urine Nitrate Urine Bilirubin Urine Urobilinogen Urine Leukocytes Urine WBC Ur Squamous Epith Cells Ur Culture Indicated? Digoxin Urine Opiates Screen Negative Ur Barbiturates Screen Negative Ur Phencyclidine Scrn Negative U Amphetamine/Methamph Positive H U Benzodiazepines Scrn Negative U Cocaine Metab Screen Negative U Cannabinoids Screen Negative 06/04/17 06/04/17 06/04/17 02:32 02:32 02:32 WBC RBC Hgb Hct MCV MCH MCHC RDW Plt Count MPV Neut % (Auto) Lymph % (Auto) [place] % (Auto) Eos % (Auto) Baso % (Auto) Neut # (Auto) Lymph # (Auto) [place] # (Auto) Eos # (Auto) Baso # (Auto) Immature Gran % Nucleated RBC % Immature Gran # Nucleated RBCs # Immature Plt Fraction INR PT Patient/Control Mix D-Dimer, Quantitative 0.6 Sodium Potassium Chloride Carbon Dioxide Anion Gap BUN Creatinine GFR Calculation BUN/Creatinine Ratio Glucose POC Glucose Hemoglobin A1c Calculated Osmolality Calcium Magnesium Total Bilirubin AST ALT Alkaline Phosphatase Troponin I < 0.015 B-Natriuretic Peptide Total Protein Albumin Globulin Albumin/Globulin Ratio Triglycerides Cholesterol LDL Cholesterol VLDL Cholesterol HDL Cholesterol Heart Disease Risk Ratio Amylase Lipase Urine Color Urine Appearance Urine pH Ur Specific [place] Urine Protein Urine Glucose (UA) Urine Ketones Urine Blood Urine Nitrate Urine Bilirubin Urine Urobilinogen Urine Leukocytes Urine WBC Ur Squamous Epith Cells Ur Culture Indicated? Digoxin 0.40 L Urine Opiates Screen Ur Barbiturates Screen Ur Phencyclidine Scrn U Amphetamine/Methamph U Benzodiazepines Scrn U Cocaine Metab Screen U Cannabinoids Screen 06/04/17 06/04/17 06/04/17 06:43 07:15 07:15 WBC RBC Hgb Hct MCV MCH MCHC RDW Plt Count MPV Neut % (Auto) Lymph % (Auto) [place] % (Auto) Eos % (Auto) Baso % (Auto) Neut # (Auto) Lymph # (Auto) [place] # (Auto) Eos # (Auto) Baso # (Auto) Immature Gran % Nucleated RBC % Immature Gran # Nucleated RBCs # Immature Plt Fraction INR PT Patient/Control Mix D-Dimer, Quantitative Sodium Potassium Chloride Carbon Dioxide Anion Gap BUN Creatinine GFR Calculation BUN/Creatinine Ratio Glucose POC Glucose 211 H Hemoglobin A1c 7.2 H Calculated Osmolality Calcium Magnesium Total Bilirubin AST ALT Alkaline Phosphatase Troponin I < 0.015 B-Natriuretic Peptide Total Protein Albumin Globulin Albumin/Globulin Ratio Triglycerides Cholesterol LDL Cholesterol VLDL Cholesterol HDL Cholesterol Heart Disease Risk Ratio Amylase Lipase Urine Color Urine Appearance Urine pH Ur Specific [place] Urine Protein Urine Glucose (UA) Urine Ketones Urine Blood Urine Nitrate Urine Bilirubin Urine Urobilinogen Urine Leukocytes Urine WBC Ur Squamous Epith Cells Ur Culture Indicated? Digoxin Urine Opiates Screen Ur Barbiturates Screen Ur Phencyclidine Scrn U Amphetamine/Methamph U Benzodiazepines Scrn U Cocaine Metab Screen U Cannabinoids Screen 06/04/17 07:15 WBC RBC Hgb Hct MCV MCH MCHC RDW Plt Count MPV Neut % (Auto) Lymph % (Auto) [place] % (Auto) Eos % (Auto) Baso % (Auto) Neut # (Auto) Lymph # (Auto) [place] # (Auto) Eos # (Auto) Baso # (Auto) Immature Gran % Nucleated RBC % Immature Gran # Nucleated RBCs # Immature Plt Fraction INR PT Patient/Control Mix D-Dimer, Quantitative Sodium Potassium Chloride Carbon Dioxide Anion Gap BUN Creatinine GFR Calculation BUN/Creatinine Ratio Glucose POC Glucose Hemoglobin A1c Calculated Osmolality Calcium Magnesium Total Bilirubin AST ALT Alkaline Phosphatase Troponin I B-Natriuretic Peptide Total Protein Albumin Globulin Albumin/Globulin Ratio Triglycerides 272 H Cholesterol 154 LDL Cholesterol 83.0 VLDL Cholesterol 54.4 HDL Cholesterol 40 Heart Disease Risk Ratio 3.85 Amylase Lipase Urine Color Urine Appearance Urine pH Ur Specific [place] Urine Protein Urine Glucose (UA) Urine Ketones Urine Blood Urine Nitrate Urine Bilirubin Urine Urobilinogen Urine Leukocytes Urine WBC Ur Squamous Epith Cells Ur Culture Indicated? Digoxin Urine Opiates Screen Ur Barbiturates Screen Ur Phencyclidine Scrn U Amphetamine/Methamph U Benzodiazepines Scrn U Cocaine Metab Screen U Cannabinoids Screen - Diagnostic Findings Procedure: Chest x-ray: report reviewed by FRANCISCO barraza x-ray: report reviewed by me - EKG EKG results: sinus rhythm EKG shows: sinus rhythm Specialty Discharge - Follow Up or Referrals Follow up with: Sergey Sequeira MD [Physician] - (Please schedule Cardiolite stress test at [facility] in the next 1-2 weeks (reason: Chest pain). Also, please schedule echocardiogram at [facility] in the next 2-3 weeks (reason: Cardiomyopathy). Please give patient a follow-up appoint with Dr. Sequeira in 4-6 weeks. At that visit the following will be obtained: BMP, magnesium, CBC, EKG.) <Candis Foster - Last Filed: 06/04/17 16:34> Exam (Progress Note) - Constitutional Vitals: Period Temp Pulse Resp BP Sys/Zaragoza Pulse Ox Last 24 Hr 97.0 F-98.5 F 87-110 16-21 94-135/51-90 92-100 Result/EKG - Labs CBC & BMP: 06/04/17 02:32 06/04/17 02:32 Labs: Laboratory Results - last 24 hr 06/04/17 06/04/17 06/04/17 02:32 02:32 02:32 WBC RBC Hgb Hct MCV MCH MCHC RDW Plt Count MPV Neut % (Auto) Lymph % (Auto) [place] % (Auto) Eos % (Auto) Baso % (Auto) Neut # (Auto) Lymph # (Auto) [place] # (Auto) Eos # (Auto) Baso # (Auto) Immature Gran % Nucleated RBC % Immature Gran # Nucleated RBCs # Immature Plt Fraction INR 1.0 PT Patient/Control Mix 10.7 D-Dimer, Quantitative Sodium 132 L Potassium 3.7 Chloride 97 L Carbon Dioxide 28 Anion Gap 10.7 BUN 9 Creatinine 0.90 GFR Calculation 117 BUN/Creatinine Ratio 10.00 Glucose 291 H POC Glucose Hemoglobin A1c Calculated Osmolality 273.5 Calcium 9.4 Magnesium 1.9 Total Bilirubin 0.70 AST 22 ALT 36 Alkaline Phosphatase 117 Total Creatine Kinase CK-MB (CK-2) Troponin I B-Natriuretic Peptide Total Protein 8.2 Albumin 3.9 Globulin 4.3 H Albumin/Globulin Ratio 0.9 L Triglycerides Cholesterol LDL Cholesterol VLDL Cholesterol HDL Cholesterol Heart Disease Risk Ratio Amylase 27 Lipase 143.0 Urine Color Yellow Urine Appearance Clear Urine pH 5.0 Ur Specific [place] 1.010 Urine Protein Negative Urine Glucose (UA) >=500 Urine Ketones Negative Urine Blood Negative Urine Nitrate Negative Urine Bilirubin Negative Urine Urobilinogen < 2.0 H Urine Leukocytes Negative Urine WBC 1 Ur Squamous Epith Cells Occasional Ur Culture Indicated? Not indicated Digoxin Urine Opiates Screen Ur Barbiturates Screen Ur Phencyclidine Scrn U Amphetamine/Methamph U Benzodiazepines Scrn U Cocaine Metab Screen U Cannabinoids Screen 06/04/17 06/04/17 06/04/17 02:32 02:32 02:32 WBC 16.4 H RBC 6.15 H Hgb 19.2 H Hct 51.1 MCV 84.9 L MCH 31 MCHC 36.8 H RDW 12.9 Plt Count 338 MPV 10.4 Neut % (Auto) 71.5 Lymph % (Auto) 17.3 L [place] % (Auto) 8.6 Eos % (Auto) 1.6 Baso % (Auto) 0.6 Neut # (Auto) 11.7 H Lymph # (Auto) 2.8 [place] # (Auto) 1.4 H Eos # (Auto) 0.3 Baso # (Auto) 0.1 Immature Gran % 0.4 Nucleated RBC % 0.0 Immature Gran # 0.07 Nucleated RBCs # 0.00 Immature Plt Fraction 0.0 INR PT Patient/Control Mix D-Dimer, Quantitative Sodium Potassium Chloride Carbon Dioxide Anion Gap BUN Creatinine GFR Calculation BUN/Creatinine Ratio Glucose POC Glucose Hemoglobin A1c Calculated Osmolality Calcium Magnesium Total Bilirubin AST ALT Alkaline Phosphatase Total Creatine Kinase CK-MB (CK-2) Troponin I B-Natriuretic Peptide 10 Total Protein Albumin Globulin Albumin/Globulin Ratio Triglycerides Cholesterol LDL Cholesterol VLDL Cholesterol HDL Cholesterol Heart Disease Risk Ratio Amylase Lipase Urine Color Urine Appearance Urine pH Ur Specific [place] Urine Protein Urine Glucose (UA) Urine Ketones Urine Blood Urine Nitrate Urine Bilirubin Urine Urobilinogen Urine Leukocytes Urine WBC Ur Squamous Epith Cells Ur Culture Indicated? Digoxin Urine Opiates Screen Negative Ur Barbiturates Screen Negative Ur Phencyclidine Scrn Negative U Amphetamine/Methamph Positive H U Benzodiazepines Scrn Negative U Cocaine Metab Screen Negative U Cannabinoids Screen Negative 06/04/17 06/04/17 06/04/17 02:32 02:32 02:32 WBC RBC Hgb Hct MCV MCH MCHC RDW Plt Count MPV Neut % (Auto) Lymph % (Auto) [place] % (Auto) Eos % (Auto) Baso % (Auto) Neut # (Auto) Lymph # (Auto) [place] # (Auto) Eos # (Auto) Baso # (Auto) Immature Gran % Nucleated RBC % Immature Gran # Nucleated RBCs # Immature Plt Fraction INR PT Patient/Control Mix D-Dimer, Quantitative 0.6 Sodium Potassium Chloride Carbon Dioxide Anion Gap BUN Creatinine GFR Calculation BUN/Creatinine Ratio Glucose POC Glucose Hemoglobin A1c Calculated Osmolality Calcium Magnesium Total Bilirubin AST ALT Alkaline Phosphatase Total Creatine Kinase CK-MB (CK-2) Troponin I < 0.015 B-Natriuretic Peptide Total Protein Albumin Globulin Albumin/Globulin Ratio Triglycerides Cholesterol LDL Cholesterol VLDL Cholesterol HDL Cholesterol Heart Disease Risk Ratio Amylase Lipase Urine Color Urine Appearance Urine pH Ur Specific [place] Urine Protein Urine Glucose (UA) Urine Ketones Urine Blood Urine Nitrate Urine Bilirubin Urine Urobilinogen Urine Leukocytes Urine WBC Ur Squamous Epith Cells Ur Culture Indicated? Digoxin 0.40 L Urine Opiates Screen Ur Barbiturates Screen Ur Phencyclidine Scrn U Amphetamine/Methamph U Benzodiazepines Scrn U Cocaine Metab Screen U Cannabinoids Screen 06/04/17 06/04/17 06/04/17 06:43 07:15 07:15 WBC RBC Hgb Hct MCV MCH MCHC RDW Plt Count MPV Neut % (Auto) Lymph % (Auto) [place] % (Auto) Eos % (Auto) Baso % (Auto) Neut # (Auto) Lymph # (Auto) [place] # (Auto) Eos # (Auto) Baso # (Auto) Immature Gran % Nucleated RBC % Immature Gran # Nucleated RBCs # Immature Plt Fraction INR PT Patient/Control Mix D-Dimer, Quantitative Sodium Potassium Chloride Carbon Dioxide Anion Gap BUN Creatinine GFR Calculation BUN/Creatinine Ratio Glucose POC Glucose 211 H Hemoglobin A1c 7.2 H Calculated Osmolality Calcium Magnesium Total Bilirubin AST ALT Alkaline Phosphatase Total Creatine Kinase CK-MB (CK-2) Troponin I < 0.015 B-Natriuretic Peptide Total Protein Albumin Globulin Albumin/Globulin Ratio Triglycerides Cholesterol LDL Cholesterol VLDL Cholesterol HDL Cholesterol Heart Disease Risk Ratio Amylase Lipase Urine Color Urine Appearance Urine pH Ur Specific [place] Urine Protein Urine Glucose (UA) Urine Ketones Urine Blood Urine Nitrate Urine Bilirubin Urine Urobilinogen Urine Leukocytes Urine WBC Ur Squamous Epith Cells Ur Culture Indicated? Digoxin Urine Opiates Screen Ur Barbiturates Screen Ur Phencyclidine Scrn U Amphetamine/Methamph U Benzodiazepines Scrn U Cocaine Metab Screen U Cannabinoids Screen 06/04/17 06/04/17 06/04/17 07:15 11:22 11:56 WBC RBC Hgb Hct MCV MCH MCHC RDW Plt Count MPV Neut % (Auto) Lymph % (Auto) [place] % (Auto) Eos % (Auto) Baso % (Auto) Neut # (Auto) Lymph # (Auto) [place] # (Auto) Eos # (Auto) Baso # (Auto) Immature Gran % Nucleated RBC % Immature Gran # Nucleated RBCs # Immature Plt Fraction INR PT Patient/Control Mix D-Dimer, Quantitative Sodium Potassium Chloride Carbon Dioxide Anion Gap BUN Creatinine GFR Calculation BUN/Creatinine Ratio Glucose POC Glucose 233 H Hemoglobin A1c Calculated Osmolality Calcium Magnesium Total Bilirubin AST ALT Alkaline Phosphatase Total Creatine Kinase 43 CK-MB (CK-2) 1.0 Troponin I < 0.015 B-Natriuretic Peptide Total Protein Albumin Globulin Albumin/Globulin Ratio Triglycerides 272 H Cholesterol 154 LDL Cholesterol 83.0 VLDL Cholesterol 54.4 HDL Cholesterol 40 Heart Disease Risk Ratio 3.85 Amylase Lipase Urine Color Urine Appearance Urine pH Ur Specific [place] Urine Protein Urine Glucose (UA) Urine Ketones Urine Blood Urine Nitrate Urine Bilirubin Urine Urobilinogen Urine Leukocytes Urine WBC Ur Squamous Epith Cells Ur Culture Indicated? Digoxin Urine Opiates Screen Ur Barbiturates Screen Ur Phencyclidine Scrn U Amphetamine/Methamph U Benzodiazepines Scrn U Cocaine Metab Screen U Cannabinoids Screen 06/04/17 15:37 WBC RBC Hgb Hct MCV MCH MCHC RDW Plt Count MPV Neut % (Auto) Lymph % (Auto) [place] % (Auto) Eos % (Auto) Baso % (Auto) Neut # (Auto) Lymph # (Auto) [place] # (Auto) Eos # (Auto) Baso # (Auto) Immature Gran % Nucleated RBC % Immature Gran # Nucleated RBCs # Immature Plt Fraction INR PT Patient/Control Mix D-Dimer, Quantitative Sodium Potassium Chloride Carbon Dioxide Anion Gap BUN Creatinine GFR Calculation BUN/Creatinine Ratio Glucose POC Glucose 254 H Hemoglobin A1c Calculated Osmolality Calcium Magnesium Total Bilirubin AST ALT Alkaline Phosphatase Total Creatine Kinase CK-MB (CK-2) Troponin I B-Natriuretic Peptide Total Protein Albumin Globulin Albumin/Globulin Ratio Triglycerides Cholesterol LDL Cholesterol VLDL Cholesterol HDL Cholesterol Heart Disease Risk Ratio Amylase Lipase Urine Color Urine Appearance Urine pH Ur Specific [place] Urine Protein Urine Glucose (UA) Urine Ketones Urine Blood Urine Nitrate Urine Bilirubin Urine Urobilinogen Urine Leukocytes Urine WBC Ur Squamous Epith Cells Ur Culture Indicated? Digoxin Urine Opiates Screen Ur Barbiturates Screen Ur Phencyclidine Scrn U Amphetamine/Methamph U Benzodiazepines Scrn U Cocaine Metab Screen U Cannabinoids Screen ITaye Bonnie E, NP, personally performed the services described in this documentation, ascribed by Alisson Cross NP in my presence, and it is both accurate and complete .
[2017-06-04 12:35] LABS: Troponin I Only < 0.015 NG/ML (0.00-0.045)
[2017-06-04 15:57] VITALS: BP 111/60
[2017-06-04] MEDS ORDERED: SERTRALINE 50 MG TABLET PO SCH (21:00)
[2017-06-04] MEDS ORDERED: FENOFIBRATE 145 MG TABLET PO SCH (21:00)
== END 2017-06-04 17:09 | disposition home or self-care (01) ==
LOC: N.ED 02:17 → N.EDINP 02:17 → SUATTDRO 05:00 → N.2E 06:02
PROVIDERS: ADMIT Hospitalist; ATTEND Hospitalist

== ENCOUNTER 2018-08-31 16:01 | Inpatient (IN) ==
[2018-08-31] MEDS ORDERED: METOPROLOL TARTRATE 5 MG/5 ML VIAL IV STA ×2 (16:24→17:14)
[2018-08-31] MEDS ORDERED: PANTOPRAZOLE 40 MG VIAL IV STA (16:24)
[2018-08-31] MEDS ORDERED: ONDANSETRON 4 MG/2 ML VIAL IV STA (16:24)
[2018-08-31] MEDS ORDERED: CLINDAMYCIN INJ 900 MG in PREMIX 1 EACH IV STA (16:27)
[2018-08-31 17:22] LABS: Apearance,Urine CLEAR (Clear); Bilirubin,Urine Negative (Negative); Blood, Urine Negative (Negative); Glucose,Urine (UA) >=500 mg/dL (Negative); Ketones,Urine Negative (Negative); Mucus,Urine Occasional /LPF (Occasional); Nitrite,Urine Negative (Negative); Protein,Urine Negative; RBC,Urine <1 /HPF (0-4); Urine Color Yellow (Yellow); Urine Specific Gravity 1.016 (1.001-1.035); Urine Urobilinogen < 2.0 EU/DL (0.2-1.0); WBC,Urine <1 /HPF (0-6)
[2018-08-31 17:37] LABS: Basophils # 0.1 10*3/uL (0.0-0.2); Basophils % 0.2 % (0.0-0.8); Eosinophils % 0.1 % (0.00-10.9); Hematocrit 38.5 VOL% (42.0-52.0); Hemoglobin 13.4 GM/DL (14.0-18.0); Immature Granulocytes % 1.4 %; Immature Granulocytes Absolute 0.38 #; Lymphocytes # 2.3 10*3/uL (1.4-4.0); Lymphocytes % 8.3 % (21.2-54.2); Mean Corpuscular HGB Conc 34.8 GM/DL (32-36); Mean Corpuscular Hemoglobin 31 PG (27-34); Mean Corpuscular Volume 87.9 FL (87-102); Mean Platelet Volume 10.2 FL (9.6-12.0); Monocytes # 2.1 10*3/uL (0.11-0.8); Monocytes % 7.3 % (1.7-12.7); Neutrophils # 23.2 10*3/uL (1.4-7.4); Neutrophils % 82.7 % (38.7-73.9); Platelet Count 295 T/CUMM (130-400); Red Blood Count 4.38 MC/CUMM (3.8-5.5); Red Cell Distribution Width 12.7 % (9.3-17.3)
[2018-08-31] MEDS ORDERED: SODIUM CHLORIDE 0.9% 1,000 ML IV STA (17:50)
[2018-08-31 17:59] LABS: Lactic Acid 1.5 MMOL/L (0.4-2.0)
[2018-08-31 18:01] LABS: Alanine Aminotransferase 41 U/L (16-61); Albumin 2.5 G/DL (3.4-5.0); Alkaline Phosphatase 173 U/L (45-117); Amylase 21 U/L (25-115); Aspartate Amino Transferase 37 U/L (0-37); Blood Urea Nitrogen 11 MG/DL (7-18); Calcium 8.7 MG/DL (8.5-10.1); Glucose 228 MG/DL (74-106); Osmolality,Calculated 265.8 MOS/KG (273-304); Potassium 3.9 MMOL/L (3.5-5.1); Sodium 130 MMOL/L (136-145); Total Protein 7.2 G/DL (6.4-8.3); Troponin I < 0.015 NG/ML (0.00-0.045)
[2018-08-31] MEDS ORDERED: FUROSEMIDE 40 MG/4 ML VIAL IV STA (18:18)
[2018-08-31] MEDS ORDERED: ALBUTEROL/IPRATROPIUM 3 ML NEB RESP TX STA (18:18)
[2018-08-31 18:45] LABS: Band Neutrophils 1 % (0-10); HIV Antigen/Antibody Result Nonreactive (Nonreactive); Hepatitis B Surface Ag Quant < 0.10 Index; Hepatitis B Surface Ag Result Negative (Negative); Hepatitis C Virus Ab Quant 0.02 Index; Hepatitis C Virus Ab Result Negative (Negative); Lymphocytes 10 % (20-55); Platelet Estimate Normal; Segmented Neutrophils 85 % (50-85); Total Cells Counted 100
[2018-08-31] MEDS ORDERED: DOXYCYCLINE HYCLATE INJ 100 MG in SODIUM CHLORIDE 0.9% 100 ML IV STA (19:24)
[2018-08-31] MEDS ORDERED: ACETAMINOPHEN 325 MG TABLET PO PRN (20:33)
[2018-08-31] MEDS ORDERED: ONDANSETRON 4 MG/2 ML VIAL IV PRN (20:33)
[2018-08-31] MEDS ORDERED: DEXTROSE 50% 25 GM/50 ML SYRINGE IV PRN (20:45)
[2018-08-31] MEDS ORDERED: GLUCAGON 1 MG VIAL IM PRN (20:45)
[2018-08-31] MEDS ORDERED: VANCOMYCIN INJ 1,250 MG in SODIUM CHLORIDE 0.9% 250 ML IV SCH (22:30)
[2018-08-31] MEDS: AZTREONAM 1,000 MG in SODIUM CHLORIDE 0.9% 100 ML IV SCH (23:00)
[2018-09-01] MEDS: MORPHINE 4 MG/1 ML VIAL IV PRN ×3 (00:01→22:15)
[2018-09-01] MEDS: CARVEDILOL 25 MG TABLET PO SCH ×3 (00:05→20:47)
[2018-09-01] MEDS: INSULIN REGULAR 100 UNIT/ML SUBCUT SCH ×5 (00:07→22:07)
[2018-09-01] MEDS: INSULIN GLARGINE 100 UNIT/ML SUBCUT SCH ×2 (00:08→22:05)
[2018-09-01] MEDS: SODIUM CHLORIDE 0.45% 1,000 ML IV SCH ×2 (00:08→20:48)
[2018-09-01] MEDS: VANCOMYCIN INJ 1,000 MG in SODIUM CHLORIDE 0.9% 250 ML IV SCH ×3 (00:09→23:25)
[2018-09-01] MEDS ORDERED: NICOTINE 21 MG/24 HR PATCH TRANSDERM STA (00:24)
[2018-09-01 05:40] LABS: Basophils # 0.1 10*3/uL (0.0-0.2); Basophils % 0.4 % (0.0-0.8); Eosinophils # 0.1 10*3/uL (0.0-0.87); Eosinophils % 0.5 % (0.00-10.9); Hematocrit 37.5 VOL% (42.0-52.0); Hemoglobin 12.8 GM/DL (14.0-18.0); Immature Granulocytes % 1.1 %; Immature Granulocytes Absolute 0.26 #; Lymphocytes # 2.4 10*3/uL (1.4-4.0); Lymphocytes % 10.1 % (21.2-54.2); Mean Corpuscular HGB Conc 34.1 GM/DL (32-36); Mean Corpuscular Hemoglobin 30 PG (27-34); Mean Corpuscular Volume 88.2 FL (87-102); Mean Platelet Volume 10.8 FL (9.6-12.0); Monocytes # 1.7 10*3/uL (0.11-0.8); Monocytes % 7.3 % (1.7-12.7); Neutrophils # 19.2 10*3/uL (1.4-7.4); Neutrophils % 80.6 % (38.7-73.9); Platelet Count 284 T/CUMM (130-400); Red Blood Count 4.25 MC/CUMM (3.8-5.5); Red Cell Distribution Width 12.8 % (9.3-17.3); White Blood Count 23.8 T/CUMM (4-12)
[2018-09-01 06:08] LABS: Calcium 8.3 MG/DL (8.5-10.1); Osmolality,Calculated 270.4 MOS/KG (273-304); Potassium 3.2 MMOL/L (3.5-5.1)
[2018-09-01 06:24] LABS: Lymphocytes 12 % (20-55); Platelet Estimate Normal; Segmented Neutrophils 85 % (50-85); Total Cells Counted 100
[2018-09-01 06:25] LABS: Polychromasia Few
[2018-09-01] MEDS: AZTREONAM 1,000 MG in SODIUM CHLORIDE 0.9% 100 ML IV SCH (06:41)
[2018-09-01 08:17] LABS: Albumin 2.3 G/DL (3.4-5.0); Bilirubin,Direct 0.21 MG/DL (0.0-0.20); Bilirubin,Indirect 0.3 MG/DL (0.0-1.0); Bilirubin,Total 0.5 MG/DL (0.2-1.0); Total Protein 6.7 G/DL (6.4-8.3)
[2018-09-01] MEDS ORDERED: ONDANSETRON 4 MG/2 ML VIAL IV PRN (08:54)
[2018-09-01] MEDS ORDERED: PROMETHAZINE INJ 25 MG in SODIUM CHLORIDE 0.9% 50 ML IV PRN (08:54)
[2018-09-01] MEDS ORDERED: HYDROmorphone 2 MG/1 ML VIAL IV PRN (08:54)
[2018-09-01] MEDS ORDERED: MEPERIDINE 25 MG/1 ML VIAL IV PRN (08:54)
[2018-09-01] MEDS ORDERED: LISINOPRIL 2.5 MG TABLET PO SCH (09:00)
[2018-09-01] MEDS: ENOXAPARIN 40 MG/0.4 ML SYRINGE SUBCUT SCH (09:32)
[2018-09-01] MEDS: ASPIRIN EC 81 MG TABLET PO SCH (09:33)
[2018-09-01] MEDS: PANTOPRAZOLE 40 MG VIAL IV SCH (09:38)
[2018-09-01] MEDS ORDERED: LIDOCAINE 1%/EPI INJ 20 ML VIAL ONE (09:39)
[2018-09-01] MEDS ORDERED: BUPIVACAINE 0.5% 50 ML VIAL ONE (09:39)
[2018-09-01] MEDS ORDERED: MIDAZOLAM 2 MG/2 ML VIAL ONE (10:29)
[2018-09-01] MEDS ORDERED: DEXAMETHASONE 10 MG/1 ML VIAL ONE (10:29)
[2018-09-01] MEDS ORDERED: ONDANSETRON 4 MG/2 ML VIAL ONE (10:29)
[2018-09-01] MEDS ORDERED: ETOMIDATE 40 MG/20 ML VIAL IV ONE (10:29)
[2018-09-01] MEDS ORDERED: fentaNYL 100 MCG/2 ML VIAL ONE (10:29)
[2018-09-01] MEDS ORDERED: PROPOFOL 200 MG/20 ML VIAL IV ONE (10:29)
[2018-09-01] MEDS ORDERED: metroNIDAZOLE INJ 500 MG in PREMIX 1 EACH IV SCH (10:30)
[2018-09-01] MEDS: DIGOXIN 0.25 MG TABLET PO SCH (11:33)
[2018-09-01] MEDS: ATORVASTATIN 80 MG TABLET PO SCH (11:34)
[2018-09-01 15:34] LABS: Barbiturates Screen,Urine Negative (Negative); Benzodiazepines Screen,Urine Positive (Negative); Cannabinoid Screen,Urine Negative (Negative); Opiate Screen,Urine Positive (Negative); Phencyclidine Screen,Urine Negative (Negative)
[2018-09-01] MEDS: AZTREONAM 1,000 MG in SYRINGE 1 EACH IV SCH (16:12)
[2018-09-01] MEDS ORDERED: INSULIN REGULAR 100 UNIT/ML SUBCUT ONE (19:40)
[2018-09-01] MEDS: FENOFIBRATE 145 MG TABLET PO SCH (20:47)
[2018-09-01] MEDS: POTASSIUM CHLORIDE 20 MEQ TABLET PO SCH (20:47)
[2018-09-01] MEDS: MAGNESIUM CHLORIDE 64 MG TABLET PO SCH (20:47)
[2018-09-02] MEDS: AZTREONAM 1,000 MG in SYRINGE 1 EACH IV SCH ×3 (02:47→18:33)
[2018-09-02 04:52] LABS: Basophils % 0.2 % (0.0-0.8); Eosinophils % 0.1 % (0.00-10.9); Hematocrit 41.3 VOL% (42.0-52.0); Hemoglobin 13.9 GM/DL (14.0-18.0); Immature Granulocytes % 1.3 %; Immature Granulocytes Absolute 0.26 #; Lymphocytes # 1.4 10*3/uL (1.4-4.0); Lymphocytes % 6.9 % (21.2-54.2); Mean Corpuscular HGB Conc 33.7 GM/DL (32-36); Mean Corpuscular Hemoglobin 30 PG (27-34); Mean Corpuscular Volume 89.6 FL (87-102); Monocytes # 0.9 10*3/uL (0.11-0.8); Monocytes % 4.5 % (1.7-12.7); Neutrophils # 17.4 10*3/uL (1.4-7.4); Platelet Count 298 T/CUMM (130-400); Red Blood Count 4.61 MC/CUMM (3.8-5.5); Red Cell Distribution Width 12.3 % (9.3-17.3)
[2018-09-02 05:11] LABS: Albumin 2.4 G/DL (3.4-5.0); Bilirubin,Direct 0.19 MG/DL (0.0-0.20); Bilirubin,Indirect 0.5 MG/DL (0.0-1.0); Bilirubin,Total 0.7 MG/DL (0.2-1.0); Total Protein 7.1 G/DL (6.4-8.3)
[2018-09-02 05:20] LABS: Albumin 2.4 G/DL (3.4-5.0); Bilirubin,Total 0.9 MG/DL (0.2-1.0); Calcium 9.3 MG/DL (8.5-10.1); Osmolality,Calculated 279.2 MOS/KG (273-304); Total Protein 7.3 G/DL (6.4-8.3)
[2018-09-02] MEDS: sitaGLIPtin 100 MG TABLET PO SCH (08:39)
[2018-09-02] MEDS: ATORVASTATIN 80 MG TABLET PO SCH (08:39)
[2018-09-02] MEDS: POTASSIUM CHLORIDE 20 MEQ TABLET PO SCH ×2 (08:39→21:09)
[2018-09-02] MEDS: CARVEDILOL 25 MG TABLET PO SCH ×2 (08:39→21:09)
[2018-09-02] MEDS: GLIMEPIRIDE 4 MG TABLET PO SCH (08:39)
[2018-09-02] MEDS: DIGOXIN 0.25 MG TABLET PO SCH (08:39)
[2018-09-02] MEDS: ASPIRIN EC 81 MG TABLET PO SCH (08:39)
[2018-09-02] MEDS: PANTOPRAZOLE 40 MG VIAL IV SCH (08:40)
[2018-09-02] MEDS: ENOXAPARIN 40 MG/0.4 ML SYRINGE SUBCUT SCH (08:40)
[2018-09-02] MEDS: INSULIN REGULAR 100 UNIT/ML SUBCUT SCH (08:41)
[2018-09-02] MEDS: MAGNESIUM CHLORIDE 64 MG TABLET PO SCH ×2 (10:03→21:08)
[2018-09-02] MEDS: MORPHINE 4 MG/1 ML VIAL IV PRN (10:31)
[2018-09-02] MEDS ORDERED: DEXTROSE 50% 25 GM/50 ML VIAL IV PRN (11:27)
[2018-09-02] MEDS ORDERED: GLUCAGON 1 MG VIAL IM PRN (11:27)
[2018-09-02] MEDS ORDERED: VANCOMYCIN INJ 1,750 MG in SODIUM CHLORIDE 0.9% 500 ML IV ONE (12:00)
[2018-09-02] MEDS: INSULIN LISPRO 100 UNIT/ML SUBCUT SCH ×3 (12:12→21:12)
[2018-09-02] MEDS: FENOFIBRATE 145 MG TABLET PO SCH (21:08)
[2018-09-02] MEDS: DOCUSATE/SENNA 50-8.6 MG TABLET PO SCH (21:09)
[2018-09-02] MEDS: SERTRALINE 50 MG TABLET PO SCH (21:09)
[2018-09-02] MEDS: INSULIN GLARGINE 100 UNIT/ML SUBCUT SCH (21:11)
[2018-09-03] MEDS: MORPHINE 4 MG/1 ML VIAL IV PRN ×3 (00:38→21:39)
[2018-09-03] MEDS: VANCOMYCIN INJ 1,250 MG in SODIUM CHLORIDE 0.9% 250 ML IV SCH ×3 (00:45→23:07)
[2018-09-03] MEDS: AZTREONAM 1,000 MG in SYRINGE 1 EACH IV SCH ×3 (02:47→18:06)
[2018-09-03 05:01] LABS: Basophils # 0.1 10*3/uL (0.0-0.2); Basophils % 0.5 % (0.0-0.8); Eosinophils # 0.1 10*3/uL (0.0-0.87); Eosinophils % 0.5 % (0.00-10.9); Hematocrit 41.4 VOL% (42.0-52.0); Hemoglobin 13.7 GM/DL (14.0-18.0); Immature Granulocytes % 2.6 %; Immature Granulocytes Absolute 0.45 #; Lymphocytes # 3.8 10*3/uL (1.4-4.0); Lymphocytes % 22.1 % (21.2-54.2); Mean Corpuscular HGB Conc 33.1 GM/DL (32-36); Mean Corpuscular Hemoglobin 30 PG (27-34); Mean Corpuscular Volume 89.6 FL (87-102); Mean Platelet Volume 10.8 FL (9.6-12.0); Monocytes # 1.2 10*3/uL (0.11-0.8); Monocytes % 6.9 % (1.7-12.7); NRBC # 0.07 10*3/uL; Neutrophils # 11.5 10*3/uL (1.4-7.4); Neutrophils % 67.4 % (38.7-73.9); Platelet Count 364 T/CUMM (130-400); Red Blood Count 4.62 MC/CUMM (3.8-5.5); Red Cell Distribution Width 12.9 % (9.3-17.3); White Blood Count 17.1 T/CUMM (4-12)
[2018-09-03 05:40] LABS: Albumin 2.1 G/DL (3.4-5.0); Bilirubin,Total 0.5 MG/DL (0.2-1.0); Potassium 4.9 MMOL/L (3.5-5.1); Total Protein 6.4 G/DL (6.4-8.3)
[2018-09-03] MEDS: INSULIN LISPRO 100 UNIT/ML SUBCUT SCH ×4 (08:29→21:36)
[2018-09-03] MEDS: MAGNESIUM CHLORIDE 64 MG TABLET PO SCH ×2 (08:30→21:35)
[2018-09-03] MEDS: DOCUSATE/SENNA 50-8.6 MG TABLET PO SCH ×2 (08:30→21:35)
[2018-09-03] MEDS: sitaGLIPtin 100 MG TABLET PO SCH (08:30)
[2018-09-03] MEDS: CARVEDILOL 25 MG TABLET PO SCH ×2 (08:31→21:35)
[2018-09-03] MEDS: ASPIRIN EC 81 MG TABLET PO SCH (08:31)
[2018-09-03] MEDS: ATORVASTATIN 80 MG TABLET PO SCH (08:31)
[2018-09-03] MEDS: ENOXAPARIN 40 MG/0.4 ML SYRINGE SUBCUT SCH (08:31)
[2018-09-03] MEDS: PANTOPRAZOLE 40 MG TABLET PO SCH (08:31)
[2018-09-03] MEDS: DIGOXIN 0.25 MG TABLET PO SCH (08:31)
[2018-09-03] MEDS: GLIMEPIRIDE 4 MG TABLET PO SCH (08:31)
[2018-09-03] MEDS: POTASSIUM CHLORIDE 20 MEQ TABLET PO SCH ×2 (08:31→21:35)
[2018-09-03] MEDS: FENOFIBRATE 145 MG TABLET PO SCH (21:35)
[2018-09-03] MEDS: SERTRALINE 50 MG TABLET PO SCH (21:35)
[2018-09-03] MEDS: INSULIN GLARGINE 100 UNIT/ML SUBCUT SCH (21:35)
[2018-09-04] MEDS: AZTREONAM 1,000 MG in SYRINGE 1 EACH IV SCH ×2 (01:24→13:33)
[2018-09-04 05:39] LABS: Basophils # 0.1 10*3/uL (0.0-0.2); Basophils % 0.6 % (0.0-0.8); Eosinophils # 0.1 10*3/uL (0.0-0.87); Hematocrit 42.7 VOL% (42.0-52.0); Hemoglobin 14.2 GM/DL (14.0-18.0); Immature Granulocytes Absolute 0.29 #; Lymphocytes # 3.4 10*3/uL (1.4-4.0); Lymphocytes % 23.2 % (21.2-54.2); Mean Corpuscular HGB Conc 33.3 GM/DL (32-36); Mean Corpuscular Hemoglobin 30 PG (27-34); Mean Corpuscular Volume 89.9 FL (87-102); Mean Platelet Volume 10.7 FL (9.6-12.0); Monocytes # 1.1 10*3/uL (0.11-0.8); Monocytes % 7.3 % (1.7-12.7); NRBC # 0.05 10*3/uL; Neutrophils # 9.6 10*3/uL (1.4-7.4); Neutrophils % 65.9 % (38.7-73.9); Platelet Count 422 T/CUMM (130-400); Red Blood Count 4.75 MC/CUMM (3.8-5.5); Red Cell Distribution Width 12.9 % (9.3-17.3); White Blood Count 14.5 T/CUMM (4-12)
[2018-09-04 05:56] LABS: Albumin 2.2 G/DL (3.4-5.0); Bilirubin,Total 0.9 MG/DL (0.2-1.0); Calcium 8.6 MG/DL (8.5-10.1); Osmolality,Calculated 284.3 MOS/KG (273-304); Potassium 4.1 MMOL/L (3.5-5.1); Total Protein 6.2 G/DL (6.4-8.3)
[2018-09-04] MEDS ORDERED: FAMOTIDINE 20 MG TABLET PO ONE (06:00)
[2018-09-04] MEDS: INSULIN LISPRO 100 UNIT/ML SUBCUT SCH ×4 (08:44→22:33)
[2018-09-04] MEDS: MAGNESIUM CHLORIDE 64 MG TABLET PO SCH ×2 (08:45→22:31)
[2018-09-04] MEDS: PANTOPRAZOLE 40 MG TABLET PO SCH (08:45)
[2018-09-04] MEDS: DOCUSATE/SENNA 50-8.6 MG TABLET PO SCH ×2 (08:45→22:32)
[2018-09-04] MEDS: POLYETHYLENE GLYCOL POWDER 17 GM PACK PO SCH (08:45)
[2018-09-04] MEDS: ENOXAPARIN 40 MG/0.4 ML SYRINGE SUBCUT SCH (08:45)
[2018-09-04] MEDS: sitaGLIPtin 100 MG TABLET PO SCH (08:46)
[2018-09-04] MEDS: ATORVASTATIN 80 MG TABLET PO SCH (08:46)
[2018-09-04] MEDS: POTASSIUM CHLORIDE 20 MEQ TABLET PO SCH ×2 (08:46→22:31)
[2018-09-04] MEDS: ASPIRIN EC 81 MG TABLET PO SCH (08:47)
[2018-09-04] MEDS: GLIMEPIRIDE 4 MG TABLET PO SCH (08:47)
[2018-09-04] MEDS: CARVEDILOL 25 MG TABLET PO SCH ×2 (08:47→22:31)
[2018-09-04] MEDS: DIGOXIN 0.25 MG TABLET PO SCH (10:46)
[2018-09-04] MEDS ORDERED: BUPIVACAINE 0.5% 50 ML VIAL ONE (11:01)
[2018-09-04] MEDS ORDERED: LIDOCAINE 1%/EPI INJ 20 ML VIAL ONE (11:01)
[2018-09-04] MEDS ORDERED: PROPOFOL 200 MG/20 ML VIAL IV ONE (12:27)
[2018-09-04] MEDS ORDERED: MIDAZOLAM 2 MG/2 ML VIAL ONE (12:27)
[2018-09-04] MEDS ORDERED: KETAMINE 500 MG/10 ML VIAL ONE (12:28)
[2018-09-04] MEDS ORDERED: ONDANSETRON 4 MG/2 ML VIAL ONE (12:28)
[2018-09-04] MEDS ORDERED: fentaNYL 100 MCG/2 ML VIAL ONE (12:28)
[2018-09-04] MEDS ORDERED: ETOMIDATE 40 MG/20 ML VIAL IV ONE (12:28)
[2018-09-04] MEDS: VANCOMYCIN INJ 1,250 MG in SODIUM CHLORIDE 0.9% 250 ML IV SCH ×2 (12:32→17:39)
[2018-09-04] MEDS: MORPHINE 4 MG/1 ML VIAL IV PRN (14:44)
[2018-09-04] MEDS: FENOFIBRATE 145 MG TABLET PO SCH (22:31)
[2018-09-04] MEDS: INSULIN GLARGINE 100 UNIT/ML SUBCUT SCH (22:32)
[2018-09-04] MEDS: SERTRALINE 50 MG TABLET PO SCH (22:32)
[2018-09-05] MEDS: VANCOMYCIN INJ 1,250 MG in SODIUM CHLORIDE 0.9% 250 ML IV SCH ×2 (04:25→17:22)
[2018-09-05 04:40] LABS: Basophils # 0.1 10*3/uL (0.0-0.2); Basophils % 0.4 % (0.0-0.8); Eosinophils # 0.2 10*3/uL (0.0-0.87); Hematocrit 43.3 VOL% (42.0-52.0); Hemoglobin 14.2 GM/DL (14.0-18.0); Immature Granulocytes Absolute 0.31 #; Lymphocytes # 2.1 10*3/uL (1.4-4.0); Lymphocytes % 13.4 % (21.2-54.2); Mean Corpuscular HGB Conc 32.8 GM/DL (32-36); Mean Corpuscular Hemoglobin 30 PG (27-34); Mean Corpuscular Volume 90.4 FL (87-102); Mean Platelet Volume 10.5 FL (9.6-12.0); Monocytes # 0.7 10*3/uL (0.11-0.8); Monocytes % 4.3 % (1.7-12.7); NRBC # 0.02 10*3/uL; Neutrophils # 12.5 10*3/uL (1.4-7.4); Neutrophils % 78.9 % (38.7-73.9); Platelet Count 402 T/CUMM (130-400); Red Blood Count 4.79 MC/CUMM (3.8-5.5); Red Cell Distribution Width 12.8 % (9.3-17.3); White Blood Count 15.9 T/CUMM (4-12)
[2018-09-05 04:51] LABS: Albumin 2.1 G/DL (3.4-5.0); Bilirubin,Total 0.9 MG/DL (0.2-1.0); Calcium 8.3 MG/DL (8.5-10.1); Osmolality,Calculated 285.8 MOS/KG (273-304); Total Protein 5.9 G/DL (6.4-8.3)
[2018-09-05 04:52] LABS: Calcium 8.4 MG/DL (8.5-10.1)
[2018-09-05] MEDS: POLYETHYLENE GLYCOL POWDER 17 GM PACK PO SCH (09:23)
[2018-09-05] MEDS: ENOXAPARIN 40 MG/0.4 ML SYRINGE SUBCUT SCH (09:24)
[2018-09-05] MEDS: MAGNESIUM CHLORIDE 64 MG TABLET PO SCH ×2 (09:24→21:38)
[2018-09-05] MEDS: ATORVASTATIN 80 MG TABLET PO SCH (09:24)
[2018-09-05] MEDS: ASPIRIN EC 81 MG TABLET PO SCH (09:24)
[2018-09-05] MEDS: DOCUSATE/SENNA 50-8.6 MG TABLET PO SCH ×2 (09:24→21:38)
[2018-09-05] MEDS: POTASSIUM CHLORIDE 20 MEQ TABLET PO SCH ×2 (09:24→21:38)
[2018-09-05] MEDS: INSULIN LISPRO 100 UNIT/ML SUBCUT SCH ×4 (09:25→21:39)
[2018-09-05] MEDS: PANTOPRAZOLE 40 MG TABLET PO SCH (09:25)
[2018-09-05] MEDS: DIGOXIN 0.25 MG TABLET PO SCH (09:25)
[2018-09-05] MEDS: CARVEDILOL 25 MG TABLET PO SCH ×2 (09:25→21:38)
[2018-09-05] MEDS: sitaGLIPtin 100 MG TABLET PO SCH (09:25)
[2018-09-05] MEDS: GLIMEPIRIDE 4 MG TABLET PO SCH (09:25)
[2018-09-05] MEDS: SODIUM HYPOCHLORITE 0.25% IRRIG 473 ML BOTTLE TOP SCH (11:40)
[2018-09-05] MEDS: MORPHINE 4 MG/1 ML VIAL IV PRN (12:06)
[2018-09-05] MEDS: FENOFIBRATE 145 MG TABLET PO SCH (21:38)
[2018-09-05] MEDS: SERTRALINE 50 MG TABLET PO SCH (21:38)
[2018-09-05] MEDS: INSULIN GLARGINE 100 UNIT/ML SUBCUT SCH (21:40)
[2018-09-06] MEDS: VANCOMYCIN INJ 1,250 MG in SODIUM CHLORIDE 0.9% 250 ML IV SCH ×3 (02:40→18:09)
[2018-09-06 05:07] LABS: Basophils # 0.1 10*3/uL (0.0-0.2); Basophils % 0.4 % (0.0-0.8); Eosinophils # 0.2 10*3/uL (0.0-0.87); Eosinophils % 1.4 % (0.00-10.9); Hematocrit 42.6 VOL% (42.0-52.0); Hemoglobin 14.3 GM/DL (14.0-18.0); Immature Granulocytes % 1.8 %; Immature Granulocytes Absolute 0.25 #; Lymphocytes # 2.5 10*3/uL (1.4-4.0); Lymphocytes % 17.7 % (21.2-54.2); Mean Corpuscular HGB Conc 33.6 GM/DL (32-36); Mean Corpuscular Hemoglobin 30 PG (27-34); Mean Corpuscular Volume 89.9 FL (87-102); Mean Platelet Volume 10.5 FL (9.6-12.0); Monocytes # 0.8 10*3/uL (0.11-0.8); Monocytes % 5.4 % (1.7-12.7); Neutrophils # 10.2 10*3/uL (1.4-7.4); Neutrophils % 73.3 % (38.7-73.9); Platelet Count 377 T/CUMM (130-400); Red Blood Count 4.74 MC/CUMM (3.8-5.5); Red Cell Distribution Width 12.7 % (9.3-17.3)
[2018-09-06 05:38] LABS: Calcium 8.6 MG/DL (8.5-10.1); Osmolality,Calculated 285.7 MOS/KG (273-304); Potassium 4.2 MMOL/L (3.5-5.1)
[2018-09-06] MEDS: DIGOXIN 0.25 MG TABLET PO SCH (08:58)
[2018-09-06] MEDS: PANTOPRAZOLE 40 MG TABLET PO SCH (08:58)
[2018-09-06] MEDS: ASPIRIN EC 81 MG TABLET PO SCH (08:58)
[2018-09-06] MEDS: sitaGLIPtin 100 MG TABLET PO SCH (08:58)
[2018-09-06] MEDS: GLIMEPIRIDE 4 MG TABLET PO SCH (08:58)
[2018-09-06] MEDS: DOCUSATE/SENNA 50-8.6 MG TABLET PO SCH (08:58)
[2018-09-06] MEDS: INSULIN LISPRO 100 UNIT/ML SUBCUT SCH ×4 (08:58→20:37)
[2018-09-06] MEDS: CARVEDILOL 25 MG TABLET PO SCH ×2 (08:58→20:36)
[2018-09-06] MEDS: POTASSIUM CHLORIDE 20 MEQ TABLET PO SCH ×2 (08:58→20:35)
[2018-09-06] MEDS: ATORVASTATIN 80 MG TABLET PO SCH (08:58)
[2018-09-06] MEDS: MAGNESIUM CHLORIDE 64 MG TABLET PO SCH ×2 (08:58→20:36)
[2018-09-06] MEDS: ENOXAPARIN 40 MG/0.4 ML SYRINGE SUBCUT SCH (08:58)
[2018-09-06] MEDS: POLYETHYLENE GLYCOL POWDER 17 GM PACK PO SCH (08:59)
[2018-09-06] MEDS ORDERED: BISACODYL 10 MG SUPP RECTAL PRN (11:02)
[2018-09-06] MEDS: SODIUM HYPOCHLORITE 0.25% IRRIG 473 ML BOTTLE TOP SCH (11:55)
[2018-09-06] MEDS: BISACODYL 5 MG TABLET PO SCH (20:35)
[2018-09-06] MEDS: SERTRALINE 50 MG TABLET PO SCH (20:36)
[2018-09-06] MEDS: FENOFIBRATE 145 MG TABLET PO SCH (20:36)
[2018-09-06] MEDS: INSULIN GLARGINE 100 UNIT/ML SUBCUT SCH (20:37)
[2018-09-07 02:19] LABS: Calcium 9.3 MG/DL (8.5-10.1); Osmolality,Calculated 275.7 MOS/KG (273-304); Potassium 4.1 MMOL/L (3.5-5.1)
[2018-09-07 02:20] LABS: Basophils # 0.1 10*3/uL (0.0-0.2); Basophils % 0.4 % (0.0-0.8); Eosinophils # 0.3 10*3/uL (0.0-0.87); Eosinophils % 1.6 % (0.00-10.9); Hematocrit 47.7 VOL% (42.0-52.0); Hemoglobin 15.9 GM/DL (14.0-18.0); Immature Granulocytes % 1.4 %; Immature Granulocytes Absolute 0.22 #; Lymphocytes # 3.1 10*3/uL (1.4-4.0); Lymphocytes % 19.3 % (21.2-54.2); Mean Corpuscular HGB Conc 33.3 GM/DL (32-36); Mean Corpuscular Hemoglobin 30 PG (27-34); Mean Corpuscular Volume 90.2 FL (87-102); Mean Platelet Volume 10.3 FL (9.6-12.0); Neutrophils # 11.5 10*3/uL (1.4-7.4); Neutrophils % 71.3 % (38.7-73.9); Platelet Count 420 T/CUMM (130-400); Red Blood Count 5.29 MC/CUMM (3.8-5.5); Red Cell Distribution Width 12.9 % (9.3-17.3); White Blood Count 16.1 T/CUMM (4-12)
[2018-09-07] MEDS: VANCOMYCIN INJ 1,250 MG in SODIUM CHLORIDE 0.9% 250 ML IV SCH ×3 (03:04→19:08)
[2018-09-07] MEDS: MORPHINE 4 MG/1 ML VIAL IV PRN ×2 (06:24→22:29)
[2018-09-07] MEDS: ASPIRIN EC 81 MG TABLET PO SCH (08:56)
[2018-09-07] MEDS: CARVEDILOL 25 MG TABLET PO SCH ×2 (08:56→22:05)
[2018-09-07] MEDS: INSULIN LISPRO 100 UNIT/ML SUBCUT SCH ×4 (08:56→22:06)
[2018-09-07] MEDS: POTASSIUM CHLORIDE 20 MEQ TABLET PO SCH ×2 (08:56→22:04)
[2018-09-07] MEDS: DIGOXIN 0.25 MG TABLET PO SCH (08:56)
[2018-09-07] MEDS: GLIMEPIRIDE 4 MG TABLET PO SCH (08:56)
[2018-09-07] MEDS: MAGNESIUM CHLORIDE 64 MG TABLET PO SCH ×2 (08:56→22:05)
[2018-09-07] MEDS: PANTOPRAZOLE 40 MG TABLET PO SCH (08:56)
[2018-09-07] MEDS: sitaGLIPtin 100 MG TABLET PO SCH (08:56)
[2018-09-07] MEDS: ATORVASTATIN 80 MG TABLET PO SCH (08:56)
[2018-09-07] MEDS: ENOXAPARIN 40 MG/0.4 ML SYRINGE SUBCUT SCH (08:57)
[2018-09-07] MEDS: SODIUM HYPOCHLORITE 0.25% IRRIG 473 ML BOTTLE TOP SCH (08:57)
[2018-09-07] MEDS: POLYETHYLENE GLYCOL POWDER 17 GM PACK PO SCH (08:57)
[2018-09-07] MEDS ORDERED: LACTULOSE 20 GM/30 ML UDCUP PO ONE (12:43)
[2018-09-07] MEDS: FENOFIBRATE 145 MG TABLET PO SCH (22:05)
[2018-09-07] MEDS: BISACODYL 5 MG TABLET PO SCH (22:05)
[2018-09-07] MEDS: SERTRALINE 50 MG TABLET PO SCH (22:05)
[2018-09-07] MEDS: INSULIN GLARGINE 100 UNIT/ML SUBCUT SCH (22:07)
[2018-09-08] MEDS: VANCOMYCIN INJ 1,250 MG in SODIUM CHLORIDE 0.9% 250 ML IV SCH (02:39)
[2018-09-08 06:18] LABS: Albumin 2.6 G/DL (3.4-5.0); Bilirubin,Direct 0.11 MG/DL (0.0-0.20); Bilirubin,Indirect 0.5 MG/DL (0.0-1.0); Bilirubin,Total 0.6 MG/DL (0.2-1.0); Calcium 8.8 MG/DL (8.5-10.1); Osmolality,Calculated 271.1 MOS/KG (273-304); Potassium 4.3 MMOL/L (3.5-5.1); Total Protein 7.3 G/DL (6.4-8.3)
[2018-09-08 06:40] LABS: Basophils # 0.1 10*3/uL (0.0-0.2); Basophils % 0.4 % (0.0-0.8); Eosinophils # 0.3 10*3/uL (0.0-0.87); Eosinophils % 2.2 % (0.00-10.9); Hematocrit 49.8 VOL% (42.0-52.0); Hemoglobin 16.4 GM/DL (14.0-18.0); Immature Granulocytes % 1.2 %; Immature Granulocytes Absolute 0.16 #; Lymphocytes # 2.5 10*3/uL (1.4-4.0); Lymphocytes % 18.8 % (21.2-54.2); Mean Corpuscular HGB Conc 32.9 GM/DL (32-36); Mean Corpuscular Hemoglobin 30 PG (27-34); Mean Platelet Volume 10.4 FL (9.6-12.0); Monocytes % 7.8 % (1.7-12.7); Neutrophils # 9.3 10*3/uL (1.4-7.4); Neutrophils % 69.6 % (38.7-73.9); Platelet Count 441 T/CUMM (130-400); Red Blood Count 5.47 MC/CUMM (3.8-5.5); Red Cell Distribution Width 12.9 % (9.3-17.3); White Blood Count 13.4 T/CUMM (4-12)
[2018-09-08] MEDS: INSULIN LISPRO 100 UNIT/ML SUBCUT SCH ×4 (08:01→22:57)
[2018-09-08] MEDS: sitaGLIPtin 100 MG TABLET PO SCH (09:23)
[2018-09-08] MEDS: CARVEDILOL 25 MG TABLET PO SCH ×2 (09:23→21:52)
[2018-09-08] MEDS: GLIMEPIRIDE 4 MG TABLET PO SCH (09:23)
[2018-09-08] MEDS: ATORVASTATIN 80 MG TABLET PO SCH (09:23)
[2018-09-08] MEDS: MAGNESIUM CHLORIDE 64 MG TABLET PO SCH ×2 (09:23→21:52)
[2018-09-08] MEDS: DIGOXIN 0.25 MG TABLET PO SCH (09:23)
[2018-09-08] MEDS: ENOXAPARIN 40 MG/0.4 ML SYRINGE SUBCUT SCH (09:23)
[2018-09-08] MEDS: POTASSIUM CHLORIDE 20 MEQ TABLET PO SCH ×2 (09:24→21:52)
[2018-09-08] MEDS: POLYETHYLENE GLYCOL POWDER 17 GM PACK PO SCH (09:24)
[2018-09-08] MEDS: ASPIRIN EC 81 MG TABLET PO SCH (09:24)
[2018-09-08] MEDS: PANTOPRAZOLE 40 MG TABLET PO SCH (09:24)
[2018-09-08] MEDS: SODIUM HYPOCHLORITE 0.25% IRRIG 473 ML BOTTLE TOP SCH (09:24)
[2018-09-08] MEDS: BISACODYL 5 MG TABLET PO SCH (21:52)
[2018-09-08] MEDS: SERTRALINE 50 MG TABLET PO SCH (21:52)
[2018-09-08] MEDS: FENOFIBRATE 145 MG TABLET PO SCH (21:52)
[2018-09-08] MEDS: INSULIN GLARGINE 100 UNIT/ML SUBCUT SCH (22:57)
[2018-09-08] MEDS: MORPHINE 4 MG/1 ML VIAL IV PRN (23:12)
[2018-09-09] MEDS ORDERED: ONDANSETRON 4 MG/2 ML VIAL IV PRN (11:22)
[2018-09-09] MEDS ORDERED: MEPERIDINE 25 MG/1 ML VIAL IV PRN (11:22)
[2018-09-09] MEDS ORDERED: PROMETHAZINE INJ 25 MG in SODIUM CHLORIDE 0.9% 50 ML IV PRN (11:22)
[2018-09-09] MEDS ORDERED: diphenhydrAMINE 50 MG/1 ML VIAL IV PRN (11:22)
[2018-09-09] MEDS ORDERED: HYDROmorphone 2 MG/1 ML VIAL IV PRN (11:22)
[2018-09-09] MEDS ORDERED: KETAMINE 500 MG/10 ML VIAL ONE (11:44)
[2018-09-09] MEDS ORDERED: ONDANSETRON 4 MG/2 ML VIAL ONE ×2 (11:45→11:55)
[2018-09-09] MEDS ORDERED: MIDAZOLAM 2 MG/2 ML VIAL ONE (11:45)
[2018-09-09] MEDS ORDERED: fentaNYL 100 MCG/2 ML VIAL ONE (11:45)
[2018-09-09] MEDS ORDERED: PROPOFOL 200 MG/20 ML VIAL IV ONE (11:45)
[2018-09-09] MEDS ORDERED: MEPERIDINE 25 MG/1 ML VIAL ONE (11:55)
[2018-09-09] MEDS: GLIMEPIRIDE 4 MG TABLET PO SCH (12:12)
[2018-09-09] MEDS: INSULIN LISPRO 100 UNIT/ML SUBCUT SCH ×4 (12:12→22:46)
[2018-09-09] MEDS: POTASSIUM CHLORIDE 20 MEQ TABLET PO SCH ×2 (13:01→22:43)
[2018-09-09] MEDS: MAGNESIUM CHLORIDE 64 MG TABLET PO SCH ×2 (13:13→22:43)
[2018-09-09] MEDS: CARVEDILOL 25 MG TABLET PO SCH ×2 (13:13→22:43)
[2018-09-09] MEDS: PANTOPRAZOLE 40 MG TABLET PO SCH (13:53)
[2018-09-09] MEDS: sitaGLIPtin 100 MG TABLET PO SCH (13:53)
[2018-09-09] MEDS: ASPIRIN EC 81 MG TABLET PO SCH (13:53)
[2018-09-09] MEDS: DIGOXIN 0.25 MG TABLET PO SCH (13:53)
[2018-09-09] MEDS: ENOXAPARIN 40 MG/0.4 ML SYRINGE SUBCUT SCH (13:54)
[2018-09-09] MEDS: POLYETHYLENE GLYCOL POWDER 17 GM PACK PO SCH (13:54)
[2018-09-09] MEDS: ATORVASTATIN 80 MG TABLET PO SCH (13:54)
[2018-09-09] MEDS: SODIUM HYPOCHLORITE 0.25% IRRIG 473 ML BOTTLE TOP SCH (13:56)
[2018-09-09] MEDS: MORPHINE 4 MG/1 ML VIAL IV PRN (17:34)
[2018-09-09] MEDS: FENOFIBRATE 145 MG TABLET PO SCH (22:43)
[2018-09-09] MEDS: BISACODYL 5 MG TABLET PO SCH (22:45)
[2018-09-09] MEDS: INSULIN GLARGINE 100 UNIT/ML SUBCUT SCH (22:45)
[2018-09-09] MEDS: SERTRALINE 50 MG TABLET PO SCH (22:45)
[2018-09-10] MEDS: INSULIN LISPRO 100 UNIT/ML SUBCUT SCH ×4 (08:59→22:53)
[2018-09-10] MEDS: ENOXAPARIN 40 MG/0.4 ML SYRINGE SUBCUT SCH (08:59)
[2018-09-10] MEDS: CARVEDILOL 25 MG TABLET PO SCH ×2 (09:00→22:40)
[2018-09-10] MEDS: POLYETHYLENE GLYCOL POWDER 17 GM PACK PO SCH (09:00)
[2018-09-10] MEDS: MAGNESIUM CHLORIDE 64 MG TABLET PO SCH ×2 (09:01→22:39)
[2018-09-10] MEDS: PANTOPRAZOLE 40 MG TABLET PO SCH (09:02)
[2018-09-10] MEDS: ATORVASTATIN 80 MG TABLET PO SCH (09:03)
[2018-09-10] MEDS: sitaGLIPtin 100 MG TABLET PO SCH (09:03)
[2018-09-10] MEDS: ASPIRIN EC 81 MG TABLET PO SCH (09:04)
[2018-09-10] MEDS: POTASSIUM CHLORIDE 20 MEQ TABLET PO SCH ×2 (09:06→22:39)
[2018-09-10] MEDS: DIGOXIN 0.25 MG TABLET PO SCH (09:07)
[2018-09-10] MEDS: GLIMEPIRIDE 4 MG TABLET PO SCH (09:07)
[2018-09-10] MEDS: SODIUM HYPOCHLORITE 0.25% IRRIG 473 ML BOTTLE TOP SCH (12:29)
[2018-09-10] MEDS: MORPHINE 4 MG/1 ML VIAL IV PRN (17:29)
[2018-09-10] MEDS: FENOFIBRATE 145 MG TABLET PO SCH (22:40)
[2018-09-10] MEDS: SERTRALINE 50 MG TABLET PO SCH (22:40)
[2018-09-10] MEDS: INSULIN GLARGINE 100 UNIT/ML SUBCUT SCH (22:41)
[2018-09-10] MEDS: BISACODYL 5 MG TABLET PO SCH (22:54)
[2018-09-11 05:15] LABS: Basophils # 0.1 10*3/uL (0.0-0.2); Basophils % 0.6 % (0.0-0.8); Eosinophils # 0.1 10*3/uL (0.0-0.87); Eosinophils % 1.5 % (0.00-10.9); Hematocrit 41.2 VOL% (42.0-52.0); Hemoglobin 13.6 GM/DL (14.0-18.0); Immature Granulocytes % 0.4 %; Immature Granulocytes Absolute 0.04 #; Lymphocytes % 31.3 % (21.2-54.2); Mean Corpuscular Hemoglobin 30 PG (27-34); Mean Corpuscular Volume 90.2 FL (87-102); Mean Platelet Volume 10.6 FL (9.6-12.0); Monocytes # 0.9 10*3/uL (0.11-0.8); Monocytes % 9.1 % (1.7-12.7); Neutrophils # 5.4 10*3/uL (1.4-7.4); Neutrophils % 57.1 % (38.7-73.9); Platelet Count 360 T/CUMM (130-400); Red Blood Count 4.57 MC/CUMM (3.8-5.5); Red Cell Distribution Width 12.9 % (9.3-17.3); White Blood Count 9.5 T/CUMM (4-12)
[2018-09-11 05:53] LABS: Albumin 2.6 G/DL (3.4-5.0); Bilirubin,Total 0.8 MG/DL (0.2-1.0); Calcium 8.9 MG/DL (8.5-10.1); Potassium 3.7 MMOL/L (3.5-5.1); Total Protein 6.8 G/DL (6.4-8.3)
[2018-09-11 07:47] VITALS: BP 110/62
[2018-09-11] MEDS: MAGNESIUM CHLORIDE 64 MG TABLET PO SCH (08:40)
[2018-09-11] MEDS: POTASSIUM CHLORIDE 20 MEQ TABLET PO SCH (08:40)
[2018-09-11] MEDS: GLIMEPIRIDE 4 MG TABLET PO SCH (08:41)
[2018-09-11] MEDS: CARVEDILOL 25 MG TABLET PO SCH (08:41)
[2018-09-11] MEDS: ASPIRIN EC 81 MG TABLET PO SCH (08:41)
[2018-09-11] MEDS: INSULIN LISPRO 100 UNIT/ML SUBCUT SCH ×2 (08:41→11:44)
[2018-09-11] MEDS: DIGOXIN 0.25 MG TABLET PO SCH (08:41)
[2018-09-11] MEDS: sitaGLIPtin 100 MG TABLET PO SCH (08:41)
[2018-09-11] MEDS: ATORVASTATIN 80 MG TABLET PO SCH (08:41)
[2018-09-11] MEDS: ENOXAPARIN 40 MG/0.4 ML SYRINGE SUBCUT SCH (08:41)
[2018-09-11] MEDS: POLYETHYLENE GLYCOL POWDER 17 GM PACK PO SCH (08:41)
[2018-09-11] MEDS: SODIUM HYPOCHLORITE 0.25% IRRIG 473 ML BOTTLE TOP SCH (08:42)
[2018-09-11] MEDS: PANTOPRAZOLE 40 MG TABLET PO SCH (08:42)
== END 2018-09-11 12:33 | disposition home or self-care (01) | DRG 571 ==
LOC: EDUNIT# → EDBD → N.ED 16:01 → N.EDINP 20:33 → SUATTDRO 20:33 → N.3E 21:07 → N.5E 09-08 18:59
PROVIDERS: ADMIT Internal Medicine; ATTEND Internal Medicine Infectious Disease